=== PATIENT | female | born 1995 | race Caucasian/White ===

== ENCOUNTER 2020-06-06 16:00 | Outpatient (CLI) | payer OTHER ==
[2020-06-06 17:34] LABS: BASOPHILS % (AUTO) 0.3 %; EOSINOPHILS # (AUTO) 0.1 10^3/uL (0.0-0.7); EOSINOPHILS % (AUTO) 0.6 %; HGB - HEMOGLOBIN 10.4 g/dL (12.0-16.0); LYMPHOCYTES # (AUTO) 1.7 10^3/uL (1.5-3.5); MEAN CORPUSCULAR HEMOGLOBIN 29.2 pg (27.0-31.0); MEAN CORPUSCULAR HGB CONC 33.2 g/dL (32.0-36.0); MEAN CORPUSCULAR VOLUME 87.9 fL (81.0-99.0); MEAN PLATELET VOLUME 8.7 fL (7.9-10.8); MONOCYTES # (AUTO) 0.5 10^3/uL (0.0-1.0); MONOCYTES % (AUTO) 4.4 %; NEUTROPHILS # (AUTO) 9.2 10^3/uL (1.5-6.6); NEUTROPHILS % (AUTO) 79.1 %; PLT - PLATELET COUNT 283 10^3/uL (130-450); RED BLOOD COUNT 3.56 10^6/uL (4.20-5.40); RED CELL DISTRIBUTION WIDTH 12.5 % (12.0-15.0); WHITE BLOOD COUNT 11.6 x10^3/uL (4.8-10.8)
== END 2020-06-06 16:01 | disposition home or self-care (01) ==
LOC: LAB 16:00
PROVIDERS: ATTEND Nurse Practitioner Obstetrics & Gynecology
DX: Z34.90 Encounter for supervision of normal pregnancy, unspecified, unspecified trimester (principal)
CPT/HCPCS: 36415; 82950; 85025; 86850

== ENCOUNTER 2020-06-08 08:00 | Outpatient (CLI) | payer OTHER | END 2020-06-08 23:59 | disposition home or self-care (01) | LOC: LAB.R 08:00 | PROVIDERS: ATTEND Nurse Practitioner Obstetrics & Gynecology | DX: Z11.3 Encounter for screening for infections with a predominantly sexual mode of transmission (principal) | CPT/HCPCS: 81599; 87491; 87591 ==

== ENCOUNTER 2020-06-20 08:08 | Outpatient (CLI) | payer OTHER | END 2020-06-20 08:09 | disposition home or self-care (01) | LOC: LAB 08:08 | PROVIDERS: ATTEND Nurse Practitioner Obstetrics & Gynecology | DX: O99.810 Abnormal glucose complicating pregnancy (principal) | CPT/HCPCS: 36415; 82951; 82952 ==

== ENCOUNTER 2020-07-13 10:36 | Outpatient (CLI) | payer OTHER ==
[2020-07-13 10:53] LABS: HGB - HEMOGLOBIN 12.1 g/dL (12.0-16.0); MEAN CORPUSCULAR HEMOGLOBIN 30.1 pg (27.0-31.0); MEAN CORPUSCULAR VOLUME 88.6 fL (81.0-99.0); MEAN PLATELET VOLUME 8.7 fL (7.9-10.8); RED BLOOD COUNT 4.02 10^6/uL (4.20-5.40); WHITE BLOOD COUNT 10.7 x10^3/uL (4.8-10.8)
== END 2020-07-13 10:37 | disposition home or self-care (01) ==
LOC: LAB 10:36
PROVIDERS: ATTEND Advanced Practice Midwife
DX: Z34.90 Encounter for supervision of normal pregnancy, unspecified, unspecified trimester (principal)
CPT/HCPCS: 36415; 85027

== ENCOUNTER 2020-07-24 14:23 | Outpatient (CLI) | payer OTHER ==
--- NOTE | 2020-07-24 15:41 | Ultrasound Report ---
PROCEDURE: OB Limited INDICATIONS: GESTATIONAL DIABETES MELLITUS OUTSIDE/PRIOR DATING DATA: Last menstrual period (LMP): 10/31/2019. LMP-based estimated date of delivery ([place]): 08/06/2020. First dating scan (date and location): Not available. Estimated date of delivery ([place]) from first dating scan: Not available. TECHNIQUE: Real-time scanning was performed of the fetus, with image documentation. Endovaginal scanning: COMPARISON: None. FINDINGS: A single living intrauterine gestation is present. Presentation: Vertex Placenta: Placental position is posterior, without previa. Amniotic fluid index: 12.0 cm, 28% for gestational age. heart rate: 141 beats per minutes. Maternal cervical canal: Not visualized Estimated gestational age from initial scan: 34 weeks, 2 days. IMPRESSION: 1. Single live intrauterine gestation with an CASTRO of 12 cm which is 28th percentile for gestational a ge. No priors are available at this time for comparison. Reviewed by: Muna Prasad MD on 07/24/2020 2:40 PM [place] Approved by: Muna Prasad MD on 07/24/2020 2:40 PM [place] Station ID: [id number]
== END 2020-07-24 14:24 | disposition home or self-care (01) ==
LOC: DI 14:23
PROVIDERS: ATTEND Advanced Practice Midwife
DX: O24.419 Gestational diabetes mellitus in pregnancy, unspecified control (principal); Z3A.34 34 weeks gestation of pregnancy

== ENCOUNTER 2020-07-24 15:22 | Outpatient (CLI) | payer OTHER ==
[2020-07-24 15:52] VITALS: BP 114/76
--- NOTE | 2020-07-24 18:31 | PROCEDURE REPORT ---
- HPI Diagnosis/Indication for NST: Gestational Diabetes Current EDU 09/02/20 Gestation 34 Weeks and 2 Days 2 Para 0 Vital Signs Temperature 37.2 C 07/24/20 15:51 Heart Rate 96 07/24/20 15:51 Respiratory Rate 16 07/24/20 15:51 Blood Pressure 114/76 07/24/20 15:51 O2 Saturation 97 07/24/20 15:51 Temperature 37.2 C 07/24/20 15:51 Heart Rate 96 07/24/20 15:51 Respiratory Rate 16 07/24/20 15:51 Blood Pressure 114/76 07/24/20 15:51 O2 Saturation 97 07/24/20 15:51 - NST Procedure NST Procedure Start Date 07/24/20 Start Time 15:31 Stop Time 16:14 Vibroacoustic Stimulation Used Yes Patient States Movement Yes - Results and Plan Plan: NST perform date: 07/24/2020 NST read date: 07/24/2020 S: Yohana is a 25yo at 37.2wks gestation who presents for NST w/CASTRO for borderline poorly controlled A1GDM (20% of sugars out of range) O: NST interpretation: 145 baseline moderate variability Accels 15x15 no decels CASTRO 12 A: Reassuring CASTRO wnl Plan: continue with routine care Weekly NST w/CASTRO' Final Diagnosis: Gestational Diabetes
== END 2020-07-24 16:20 | disposition home or self-care (01) ==
LOC: WFO 15:22 → FBP 15:24 → WFO 16:20
PROVIDERS: ATTEND Advanced Practice Midwife
DX: O24.410 Gestational diabetes mellitus in pregnancy, diet controlled (principal); Z3A.34 34 weeks gestation of pregnancy
CPT/HCPCS: 59025

== ENCOUNTER 2020-07-28 14:31 | Outpatient (CLI) | payer OTHER ==
--- NOTE | 2020-07-28 18:40 | Ultrasound Report ---
PROCEDURE: OB Limited INDICATIONS: GESTATIONAL DIABETES MELLITUS OUTSIDE/PRIOR DATING DATA: Last menstrual period (LMP): 10/31/2019. LMP-based estimated date of delivery ([place]): 08/06/2020. First dating scan (date and location): Not available. Estimated date of delivery ([place]) from first dating scan: Not available. TECHNIQUE: Real-time scanning was performed of the fetus, with image documentation. Endovaginal scanning: Not performed COMPARISON: 07/24/2020. FINDINGS: A single living intrauterine gestation is present. Presentation: Vertex Placenta: Placental position is posterior, without previa. Amniotic fluid index: 15.2 cm, normal and at 57 percentile for gestational age. heart rate: 153 beats per minutes. Maternal cervical canal: 3.2 cm long; normal length is 2.5 cm or more. Estimated gestational age from initial scan: 34 weeks, 6 days. Largest amniotic fluid pocket measures 5.3 cm. chest, stomach, and bilateral kidneys are visual ized and are within normal limits. Incidentally noted of positive tone, movement and andres thing. IMPRESSION: Single live intrauterine with fetus in vertex presentation. heart rate is 153 bpm. No rmal amount of amniotic fluid. Normal growth Reviewed by: Wesley Johnson MD on 07/28/2020 6:39 PM PST Approved by: Wesley Johnson MD on 07/28/2020 6:39 PM PST Station ID: [id number]
== END 2020-07-28 14:32 | disposition home or self-care (01) ==
LOC: DI 14:31
PROVIDERS: ATTEND Advanced Practice Midwife
DX: O24.419 Gestational diabetes mellitus in pregnancy, unspecified control (principal); Z3A.34 34 weeks gestation of pregnancy

== ENCOUNTER 2020-07-28 15:15 | Outpatient (CLI) | payer OTHER ==
[2020-07-28 16:26] VITALS: BP 108/72
--- NOTE | 2020-07-28 16:31 | PROCEDURE REPORT ---
- HPI Diagnosis/Indication for NST: Gestational Diabetes - NST Procedure NST Procedure Start Time 15:31 Stop Time 16:14 - Results and Plan Plan: Yohana is a 25yo @ 34.6wks gestation who presents to [facility] for scheduled NST secondary to gestational diabetes. She denies vaginal bleeding or leakage of fluid. She denies contractions and reports +FM. NST performed 07/28/2020 NST read 07/28/2020 NST reactive. FHR baseline 135, moderate variability, + accels, no decels Pt released home with precautions. FINAL DIAGNOSIS: Gestational Diabetes
== END 2020-07-28 16:02 | disposition home or self-care (01) ==
LOC: WFO 15:15 → FBP 15:17 → WFO 16:02
PROVIDERS: ATTEND Advanced Practice Midwife
DX: O24.419 Gestational diabetes mellitus in pregnancy, unspecified control (principal); Z3A.34 34 weeks gestation of pregnancy
CPT/HCPCS: 59025; 99212

== ENCOUNTER 2020-08-05 13:34 | Outpatient (CLI) | payer OTHER ==
--- NOTE | 2020-08-06 11:23 | Ultrasound Report ---
PROCEDURE: OB Limited INDICATIONS: GESTATIONAL DIABETES MELLITUS OUTSIDE/PRIOR DATING DATA: Last menstrual period (LMP): 10/31/2019. LMP-based estimated date of delivery ([place]): 08/06/2020. First dating scan (date and location): Outside. Estimated date of delivery ([place]) from first dating scan: 09/02/2020. TECHNIQUE: Real-time scanning was performed of the fetus, with image documentation. Endovaginal scanning: Not performed COMPARISON: 07/24/2020, 07/28/2020, 04/18/2020 FINDINGS: A single living intrauterine gestation is present. Presentation: Vertex Placenta: Placental position is posterior, without previa. Amniotic fluid index: 14 cm, 51st percentile for gestational age. heart rate: 152 beats per minutes. Estimated gestational age from initial scan: 36 weeks 0 days. Normal appearance of the chest, stomach, kidneys. IMPRESSION: Single living intrauterine fetus in vertex presentation. Normal CASTRO Reviewed by: Shahbaz Ingram MD on 08/06/2020 11:21 AM PST Approved by: Shahbaz Ingram MD on 08/06/2020 11:21 AM PST Station ID: [id number]
== END 2020-08-05 13:35 | disposition home or self-care (01) ==
LOC: DI 13:34
PROVIDERS: ATTEND Advanced Practice Midwife
DX: O24.419 Gestational diabetes mellitus in pregnancy, unspecified control (principal)

== ENCOUNTER 2020-08-05 15:01 | Outpatient (CLI) | payer OTHER ==
[2020-08-05 15:20] VITALS: BP 121/73
--- NOTE | 2020-08-05 17:51 | PROCEDURE REPORT ---
- HPI Diagnosis/Indication for NST: Gestational Diabetes Current EDU 09/02/20 Gestation 36 Weeks and 0 Days 2 Para 0 Vital Signs Temperature 97 F L 08/05/20 15:15 Heart Rate 79 08/05/20 15:15 Respiratory Rate 16 08/05/20 15:15 Blood Pressure 121/73 08/05/20 15:15 O2 Saturation 100 08/05/20 15:15 Temperature 97 F L 08/05/20 15:15 Heart Rate 79 08/05/20 15:15 Respiratory Rate 16 08/05/20 15:15 Blood Pressure 121/73 08/05/20 15:15 O2 Saturation 100 08/05/20 15:15 - NST Procedure NST Procedure Start Date 08/05/20 Start Time 15:10 Stop Time 15:40 Vibroacoustic Stimulation Used No Patient States Movement Yes - Results and Plan Findings/Impression: Baseline: 135 BPM Accelerations: present Decelerations: absent Variability: moderate Changes over time: neg [place]: no contractions to irritable Impression: Category 1 NST
== END 2020-08-05 16:00 | disposition home or self-care (01) ==
LOC: WFO 15:01 → FBP 15:04 → WFO 16:00
PROVIDERS: ATTEND Obstetrics & Gynecology
DX: O24.419 Gestational diabetes mellitus in pregnancy, unspecified control (principal); Z3A.36 36 weeks gestation of pregnancy
CPT/HCPCS: 59025

== ENCOUNTER 2020-08-08 14:02 | Outpatient (CLI) | payer OTHER ==
[2020-08-08 14:14] VITALS: BP 119/78
--- NOTE | 2020-08-08 17:32 | PROCEDURE REPORT ---
- HPI Diagnosis/Indication for NST: Gestational Diabetes Current EDU 09/02/20 Gestation 36 Weeks and 3 Days 2 Para 0 Vital Signs Temperature 98.4 F 08/08/20 14:10 Heart Rate 96 08/08/20 14:10 Respiratory Rate 18 08/08/20 14:10 Blood Pressure 119/78 08/08/20 14:10 O2 Saturation 100 08/08/20 14:10 Temperature 98.4 F 08/08/20 14:10 Heart Rate 96 08/08/20 14:10 Respiratory Rate 18 08/08/20 14:10 Blood Pressure 119/78 08/08/20 14:10 O2 Saturation 100 08/08/20 14:10 - NST Procedure NST Procedure Start Date 08/08/20 Start Time 14:10 Stop Time 14:30 Vibroacoustic Stimulation Used No Patient States Movement Yes - Results and Plan Findings/Impression: Baseline: 150bpm Acceleations: present Decelerations: absent Variability: moderate Changes over time: none [place]: negative contractions Impression: category 1 NST
== END 2020-08-08 14:35 | disposition home or self-care (01) ==
LOC: WFO 14:02 → FBP 14:04 → WFO 14:35
PROVIDERS: ATTEND Obstetrics & Gynecology
DX: O24.419 Gestational diabetes mellitus in pregnancy, unspecified control (principal); Z3A.36 36 weeks gestation of pregnancy
CPT/HCPCS: 59025

== ENCOUNTER 2020-08-11 08:00 | Outpatient (CLI) | payer OTHER | END 2020-08-11 23:59 | disposition home or self-care (01) | LOC: LAB.R 08:00 | PROVIDERS: ATTEND Obstetrics & Gynecology | DX: Z36.85 Encounter for antenatal screening for Streptococcus B (principal) | CPT/HCPCS: 87797 ==

== ENCOUNTER 2020-08-11 13:06 | Outpatient (CLI) | payer OTHER ==
--- NOTE | 2020-08-12 09:21 | Ultrasound Report ---
PROCEDURE: OB F/U or Repeat INDICATIONS: GESTATIONAL DIABETES MELLITUS OUTSIDE/PRIOR DATING DATA: Last menstrual period (LMP): 10/31/2019. LMP-based estimated date of delivery ([place]): 08/06/2020. First dating scan (date and location): Performed at an outside institution. Imaging date unknown. Estimated date of delivery ([place]) from first dating scan: 09/02/2020 (per report). TECHNIQUE: Real-time scanning was performed of the fetus, with image documentation and biometric measurements. Endovaginal scanning: Not performed COMPARISON: 08/05/2020 FINDINGS: General: A single living intrauterine gestation is present. Presentation: Vertex Placenta: Placental position is posterior, without previa. Amniotic fluid index: 14.4 cm, 55th percentile for gestational age. Largest pocket measured 5.2 cm heart rate: 141 beats per minute. Maternal cervical canal: Maternal cervix not imaged secondary to advanced gestational age and positioning within the pelvis. biometrics: Biparietal diameter: 8.7 cm, correlating with 35 weeks and 2 days Head circumference: 31.8 cm, correlating with 35 weeks and 6 days Abdominal circumference: 32.02 cm, correlating with 36 weeks and 0 days Femur length: 6.96 cm correlating with 35 weeks and 5 days Estimated gestational age from initial scan: not applicable. Composite gestational age from present scan: 35 weeks and 5 days Estimated weight and percentile: 2771 g which correlates with the 28th percentile based off ges tational age Measurement variability in biometric dating: +/- 10 days from 12-20 weeks gestation, +/- 2 weeks from 20-30 weeks gestation, +/- 3 weeks at 30 weeks gestation or more. Other: Not applicable. IMPRESSION: 1. Single living intrauterine gestation with estimated sonographic gestational age of approximately 3 5 weeks and 5 days. Estimated weight of approximately 2771 g which correlates with the 28th per centile based off gestational age. Expected interval growth has occurred. 2. Four-quadrant CASTRO measuring 14.4 cm with largest vertical fluid pocket measuring 5.2 cm. Reviewed by: Niko Feliciano MD on 08/12/2020 8:20 AM [facility] Approved by: Niko Feliciano MD on 08/12/2020 8:20 AM [facility] Station ID: [id number]
== END 2020-08-11 13:07 | disposition home or self-care (01) ==
LOC: DI 13:06
PROVIDERS: ATTEND Advanced Practice Midwife
DX: O24.419 Gestational diabetes mellitus in pregnancy, unspecified control (principal)

== ENCOUNTER 2020-08-11 15:29 | Outpatient (CLI) | payer OTHER ==
[2020-08-11 15:57] VITALS: BP 118/73
--- NOTE | 2020-08-11 16:16 | PROCEDURE REPORT ---
- HPI Diagnosis/Indication for NST: Gestational Diabetes Vital Signs Temperature 97.9 F 08/11/20 15:40 Heart Rate 81 08/11/20 15:40 Respiratory Rate 18 08/11/20 15:40 Blood Pressure 118/73 08/11/20 15:40 O2 Saturation 99 08/11/20 15:40 Temperature 97.9 F 08/11/20 15:40 Heart Rate 81 08/11/20 15:40 Respiratory Rate 18 08/11/20 15:40 Blood Pressure 118/73 08/11/20 15:40 O2 Saturation 99 08/11/20 15:40 - NST Procedure NST Procedure Start Time 14:10 Stop Time 14:30 - Results and Plan Findings/Impression: Baseline: 140 BPM Variability: Moderate Accelerations: Present Decelerations: Absent Trends in FHR over time: no changes [place] contractions in 10 minutes: 0 Impression: reactive Category 1 NST
== END 2020-08-11 16:05 | disposition home or self-care (01) ==
LOC: WFO 15:29 → FBP 15:30 → WFO 16:05
PROVIDERS: ATTEND Obstetrics & Gynecology
DX: O24.419 Gestational diabetes mellitus in pregnancy, unspecified control (principal); Z36.85 Encounter for antenatal screening for Streptococcus B; Z3A.36 36 weeks gestation of pregnancy
CPT/HCPCS: 59025; 87797

== ENCOUNTER 2020-08-16 14:07 | Outpatient (CLI) | payer OTHER ==
[2020-08-16 14:46] VITALS: BP 105/57
--- NOTE | 2020-08-19 23:12 | PROCEDURE REPORT ---
- HPI Diagnosis/Indication for NST: Gestational Diabetes Current EDU 09/02/20 Gestation 37 Weeks and 4 Days 2 Para 0 Vital Signs Temperature 97.3 F L 08/16/20 14:26 Heart Rate 100 08/16/20 14:26 Respiratory Rate 16 08/16/20 14:26 Blood Pressure 121/80 08/16/20 14:26 O2 Saturation 99 08/16/20 14:26 Temperature 97.3 F L 08/16/20 14:26 Heart Rate 100 08/16/20 14:26 Respiratory Rate 16 08/16/20 14:26 Blood Pressure 105/57 L 08/16/20 14:44 O2 Saturation 99 08/16/20 14:26 - NST Procedure NST Procedure Start Date 08/16/20 Start Time 14:21 Stop Time 14:46 Vibroacoustic Stimulation Used No Patient States Movement Yes EFM 145 mod [place] 15x15 accels no decels TOCO: Quiet - Results and Plan Findings/Impression: 25 yo at 37+4 wga with A2DM here for NST Cat I tracing Cont with twice wekyl NST and weekly CASTRO IOL at 39 weeks DX:gestational diabetes
== END 2020-08-16 15:00 | disposition home or self-care (01) ==
LOC: WFO 14:07 → FBP 14:10 → WFO 15:00
PROVIDERS: ATTEND Obstetrics & Gynecology
DX: O24.410 Gestational diabetes mellitus in pregnancy, diet controlled (principal); Z3A.39 39 weeks gestation of pregnancy
CPT/HCPCS: 59025

== ENCOUNTER 2020-08-19 13:38 | Outpatient (CLI) | payer OTHER ==
--- NOTE | 2020-08-19 15:57 | Ultrasound Report ---
PROCEDURE: OB Limited INDICATIONS: GESTATIONAL DIABETES MELLITUS OUTSIDE/PRIOR DATING DATA: Last menstrual period (LMP): 10/31/2019. LMP-based estimated date of delivery ([place]): 08/06/2020. First dating scan (date and location): [place] state. Estimated date of delivery ([place]) from first dating scan: 09/02/2020. TECHNIQUE: Real-time scanning was performed of the fetus, with image documentation. COMPARISON: OB ultrasound 08/11/2020, 08/05/2020, 07/28/2020, 07/17, 04/18/2020 FINDINGS: A single living intrauterine gestation is present. Presentation: Vertex Placenta: Placental position is posterior, without previa. Amniotic fluid index: 9.3 cm, 14th percentile for gestational age. Largest pocket measures 7.1 cm. heart rate: 149 beats per minutes. Maternal cervical canal: Not well seen. Estimated gestational age from initial scan: 38 weeks 0 days. IMPRESSION: 1. Single live intrauterine with CASTRO at the 14th percentile. Reviewed by: Rosa Diego MD on 08/19/2020 3:56 PM PST Approved by: Rosa Diego MD on 08/19/2020 3:56 PM PST Station ID: [id number]
== END 2020-08-19 13:39 | disposition home or self-care (01) ==
LOC: DI 13:38
PROVIDERS: ATTEND Advanced Practice Midwife
DX: O24.419 Gestational diabetes mellitus in pregnancy, unspecified control (principal); Z3A.38 38 weeks gestation of pregnancy

== ENCOUNTER 2020-08-19 14:16 | Outpatient (CLI) | payer OTHER ==
[2020-08-19 14:34] VITALS: BP 118/77
--- NOTE | 2020-08-19 21:43 | PROCEDURE REPORT ---
- HPI Diagnosis/Indication for NST: Gestational Diabetes Current EDU 09/02/20 Gestation 38 Weeks and 0 Days 2 Para 0 Vital Signs Temperature 97.3 F L 08/19/20 14:30 Heart Rate 96 08/19/20 14:30 Respiratory Rate 16 08/19/20 14:30 Blood Pressure 118/77 08/19/20 14:30 O2 Saturation 99 08/19/20 14:30 Temperature 97.3 F L 08/19/20 14:30 Heart Rate 96 08/19/20 14:30 Respiratory Rate 16 08/19/20 14:30 Blood Pressure 118/77 08/19/20 14:30 O2 Saturation 99 08/19/20 14:30 - NST Procedure NST Procedure Start Date 08/19/20 Start Time 14:28 Stop Time 14:54 Vibroacoustic Stimulation Used No Patient States Movement Yes EFM 140 mod [place] 15x15 accels no decel TOCO: quiet - Results and Plan Findings/Impression: 25 yo at 38+ 0 wga with affected by A2DM here for NST Cat I tracing Cont with twice weekly NST and weekly CASTRO IOL at 39 wga DX: gestational diabetes
== END 2020-08-19 15:00 | disposition home or self-care (01) ==
LOC: WFO 14:16 → FBP 14:19 → WFO 15:00
PROVIDERS: ATTEND Obstetrics & Gynecology
DX: O24.410 Gestational diabetes mellitus in pregnancy, diet controlled (principal); Z3A.38 38 weeks gestation of pregnancy
CPT/HCPCS: 59025

== ENCOUNTER 2020-08-22 14:01 | Outpatient (CLI) | payer OTHER ==
[2020-08-22 14:24] VITALS: BP 114/79
[2020-08-22 15:20] LABS: RUPTURE OF MEMBRANES PLUS NEGATIVE (NEGATIVE)
--- NOTE | 2020-08-26 08:41 | PROCEDURE REPORT ---
- HPI Current EDU 09/02/20 Gestation 38 Weeks and 3 Days 2 Para 0 Vital Signs Temperature 36.3 C L 08/22/20 14:21 Heart Rate 83 08/22/20 14:21 Respiratory Rate 16 08/22/20 14:21 Blood Pressure 114/79 08/22/20 14:21 O2 Saturation 100 08/22/20 14:21 Temperature 36.3 C L 08/22/20 14:21 Heart Rate 83 08/22/20 14:21 Respiratory Rate 16 08/22/20 14:21 Blood Pressure 114/79 08/22/20 14:21 O2 Saturation 100 08/22/20 14:21 - NST Procedure NST Procedure Start Date 08/22/20 Start Time 14:20 Stop Time 14:42 Vibroacoustic Stimulation Used No Patient States Movement Yes - Results and Plan Findings/Impression: 08/22/20 REACTIVE NST Plan: CONTINUE ANTINATAL TESTING
== END 2020-08-22 15:41 | disposition home or self-care (01) ==
LOC: WFO 14:01 → FBP 14:05 → WFO 15:41
PROVIDERS: ATTEND Obstetrics & Gynecology
DX: O24.419 Gestational diabetes mellitus in pregnancy, unspecified control (principal); Z3A.38 38 weeks gestation of pregnancy
CPT/HCPCS: 59025; 84112

== ENCOUNTER 2020-08-25 13:39 | Outpatient (CLI) | payer OTHER ==
--- NOTE | 2020-08-26 10:04 | Ultrasound Report ---
PROCEDURE: OB Limited INDICATIONS: GESTATIONAL DIABETES MELLITUS OUTSIDE/PRIOR DATING DATA: Last menstrual period (LMP): 10/31/2019. LMP-based estimated date of delivery ([place]): 08/06/2020. First dating scan (date and location): [id number] priors not available for review. Estimated date of delivery ([place]) from first dating scan: 09/02/2019 is established due date by ordering provider based on medical records.. TECHNIQUE: Real-time scanning was performed of the fetus, with image documentation. COMPARISON: OB ultrasound 08/11/2020, 08/05/2020, 07/28/2020, 07/24/2020, 08/19/2020, 04/18/2020 FINDINGS: A single living intrauterine gestation is present. Presentation: Vertex Placenta: Placental position is posterior, without previa. Amniotic fluid index: 11.1 cm, 31st percentile for gestational age. Largest pocket 3.8 cm. heart rate: 157 beats per minutes. Maternal cervical canal: Not evaluated Estimated gestational age from initial scan: 30 weeks 6 days. IMPRESSION: Single live intrauterine with ultrasound gestational age of 38 weeks 6 days. A FI is within normal limits. Reviewed by: Rosa Diego MD on 08/26/2020 10:03 AM PST Approved by: Rosa Diego MD on 08/26/2020 10:03 AM PST Station ID: [id number]
== END 2020-08-25 13:40 | disposition home or self-care (01) ==
LOC: DI 13:39
PROVIDERS: ATTEND Advanced Practice Midwife
DX: O24.419 Gestational diabetes mellitus in pregnancy, unspecified control (principal); Z3A.38 38 weeks gestation of pregnancy

== ENCOUNTER 2020-08-25 14:11 | Outpatient (CLI) | payer OTHER ==
[2020-08-25 14:25] VITALS: BP 126/76
--- NOTE | 2020-09-04 22:18 | PROCEDURE REPORT ---
- HPI Diagnosis/Indication for NST: Gestational Diabetes Current EDU 09/02/20 Gestation 38 Weeks and 6 Days 2 Para 1 Vital Signs Temperature 97.9 F 08/25/20 14:23 Heart Rate 92 08/25/20 14:23 Respiratory Rate 17 08/25/20 14:23 Blood Pressure 126/76 08/25/20 14:23 O2 Saturation 100 08/25/20 14:23 Temperature 97.9 F 08/25/20 14:23 Heart Rate 92 08/25/20 14:23 Respiratory Rate 17 08/25/20 14:23 Blood Pressure 126/76 08/25/20 14:23 O2 Saturation 100 08/25/20 14:23 - NST Procedure NST Procedure Start Date 08/25/20 Start Time 14:20 Stop Time 14:45 Vibroacoustic Stimulation Used No Patient States Movement Yes EFM 140 mod [place] 15x15 accels no decels TOCO: intermittent, mild - Results and Plan Findings/Impression: 25 yo at 38+6 wga with affected by A2DM here for NST Plan: Cat I tracing Plan for IOL at 39 wga Final DX: Gestational diabetes- A2 IUP at 38+6 wga
== END 2020-08-25 14:45 | disposition home or self-care (01) ==
LOC: WFO 14:11 → FBP 14:13 → WFO 14:45
PROVIDERS: ATTEND Obstetrics & Gynecology
DX: O24.410 Gestational diabetes mellitus in pregnancy, diet controlled (principal); Z3A.38 38 weeks gestation of pregnancy
CPT/HCPCS: 59025

== ENCOUNTER 2020-08-26 07:47 | Inpatient (IN) | payer OTHER ==
[2020-08-26] MEDS ORDERED: SODIUM CHLORIDE FLUSH 0.9% 10 ML SYRINGE IVP PRN (08:47)
[2020-08-26] MEDS ORDERED: LIDOCAINE-MPF 1% 30 ML VIAL ID PRN (08:47)
[2020-08-26] MEDS ORDERED: ONDANSETRON 4 MG/2 ML VIAL IVP PRN ×2 (08:47→19:54)
[2020-08-26] MEDS ORDERED: OXYTOCIN/SODIUM CHLORIDE 500 ML IV PRN (08:47)
[2020-08-26] MEDS ORDERED: METHYLERGONOVINE 0.2 MG/ML VIAL IM PRN (08:47)
[2020-08-26] MEDS ORDERED: TRANEXAMIC ACID IN NACL 1,000 MG/100 ML BAG IV PRN (08:47)
[2020-08-26] MEDS ORDERED: miSOPROStoL 200 MCG TABLET BC PRN (08:47)
[2020-08-26] MEDS ORDERED: CARBOPROST TROMETHAMINE 250 MCG/ML AMP IM PRN (08:47)
[2020-08-26] MEDS ORDERED: OXYTOCIN 10 UNIT/ML VIAL IM PRN (08:47)
[2020-08-26 09:27] LABS: BASOPHILS % (AUTO) 0.1 %; EOSINOPHILS # (AUTO) 0.1 10^3/uL (0.0-0.7); EOSINOPHILS % (AUTO) 0.6 %; HGB - HEMOGLOBIN 12.2 g/dL (12.0-16.0); LYMPHOCYTES # (AUTO) 1.9 10^3/uL (1.5-3.5); LYMPHOCYTES % (AUTO) 16.9 %; MEAN CORPUSCULAR HEMOGLOBIN 30.2 pg (27.0-31.0); MEAN CORPUSCULAR HGB CONC 34.7 g/dL (32.0-36.0); MEAN CORPUSCULAR VOLUME 87.1 fL (81.0-99.0); MEAN PLATELET VOLUME 9.6 fL (7.9-10.8); MONOCYTES # (AUTO) 0.7 10^3/uL (0.0-1.0); MONOCYTES % (AUTO) 5.9 %; NEUTROPHILS # (AUTO) 8.5 10^3/uL (1.5-6.6); NEUTROPHILS % (AUTO) 76.1 %; PLT - PLATELET COUNT 315 10^3/uL (130-450); RED BLOOD COUNT 4.04 10^6/uL (4.20-5.40); RED CELL DISTRIBUTION WIDTH 12.7 % (12.0-15.0); WHITE BLOOD COUNT 11.2 x10^3/uL (4.8-10.8)
[2020-08-26] MEDS ORDERED: miSOPROStoL 100 MCG TABLET BC SCH ×2 (10:00→14:00)
--- NOTE | 2020-08-26 12:39 | PROVIDER PROGRESS NOTE ---
Labor Progress Note - Uterine Monitoring Uterine Monitoring Mode: positive: External toco Contraction Intensity: positive: Mild - Monitoring Monitor Mode: positive: External ultrasound Heart Rate Baseline: 140 Heart Rate Variability: positive: Moderate (6-25 bmp) Accelerations: positive: Present, 15x15 Decelerations: positive: Variable Strip Review: positive: Category I - Labor Progress Note Labor Progress Note/Additional Text: PT HAS YET TO RECEIVE HER SECOND DOSE. WILL DO 2 HOUR PP GLUCOSE
[2020-08-26] MEDS: LACTATED RINGERS 1,000 ML IV SCH ×2 (12:50→21:22)
--- NOTE | 2020-08-26 15:02 | PROVIDER PROGRESS NOTE ---
Labor Progress Note - Uterine Monitoring Uterine Monitoring Mode: positive: External toco Contraction Frequency (min/apart): 3 Contraction Intensity: positive: Mild to moderate Uterine Resting Tone: positive: Soft - Monitoring Monitor Mode: positive: External ultrasound Heart Rate Baseline: 140 Heart Rate Variability: positive: Moderate (6-25 bmp) Accelerations: positive: Present, 15x15 Decelerations: positive: None - Vaginal Exam Dilation (in cm): 2 Effacement (%): 80 Station: -2 Cervical Position: Posterior - Labor Progress Note Labor Progress Note/Additional Text: cervix is progressing continue miso
--- NOTE | 2020-08-26 17:02 | HISTORY & PHYSICAL EXAMINATION ---
DATE OF SERVICE: 08/26/2020 Physician: Edwin Casarez MD IDENTIFICATION: The patient is a 25-year-old G2, P0, ectopic 1, female whose EDC was 09/02/2020. CHIEF COMPLAINT: Gestational diabetes. She is 39 weeks. She presents for induction. HISTORY OF PRESENT ILLNESS: The patient initiated early OB care. She was initially taken care of by the [facility]. She was seen by [facility] and transferred to us at 27 weeks. She had a 50 gram Glucola, which was drawn, which was 164. A 3- hour GTT showed a fasting of 101, 1-hour 183, 2-hour 155, 3-hour 107. She was treated with diet as well as metformin and showed evidence of good control throughout her . She presented this morning for cervical ripening and induction of labor. Yesterday, the patient relates that her cervix was noted to be 1 cm, 70% effaced, -3. My examination this morning shows her to be 2 cm, 80%, -2-3. LABORATORY DATA: The patient's blood type is A positive, she is rubella immune, RPR, hepatitis B surface antigen, HIV, GC and chlamydia were all noted to be negative. Her GBS study was also noted to be negative. PAST MEDICAL HISTORY: Positive for an abnormal Pap smear as well as an ectopic . PAST SURGICAL HISTORY: Positive for a right salpingectomy in 2018. FAMILY HISTORY: Positive for type 2 diabetes in paternal grandfather. SOCIAL HISTORY: The patient is to an active day duty member. She denies the use of alcohol, tobacco or street or addictive drugs. She denies any history of domestic violence: The patient denies use of tobacco. PHYSICAL EXAMINATION GENERAL: Well-developed, well-nourished, white female, in no acute distress at this time. HEENT: Pupils equal, round. Extraocular muscles are intact. Thyroid is not palpably enlarged. HEART: Regular rate and rhythm without murmurs. LUNGS: Lung carver are clear without rales or wheezes. BACK: No spinal or CVA tenderness noted. ABDOMEN: Soft, nontender, gravid. The cervix was checked and noted to be 2 cm, 80% effaced, -2-3 vertex. The cervix is very posterior. IMPRESSION: 1. A 25-year-old G2, P0 female, 39 weeks estimated gestation age today. 2. Gestational diabetes, well controlled with metformin. PLAN: We will start misoprostol 25 mcg orally at this time. We will anticipate labor and vaginal delivery. TD: 08/26/2020 16:36 MTDD
[2020-08-26] MEDS ORDERED: FLUTICASONE NASAL SPRAY NAS SCH (18:00)
[2020-08-26] MEDS ORDERED: fentaNYL 100 MCG/2 ML VIAL IVP PRN (19:12)
[2020-08-26] MEDS ORDERED: ROPIVACAINE 0.2% 200 MG/100 ML BAG EP ONE (19:26)
--- NOTE | 2020-08-26 19:52 | PROVIDER PROGRESS NOTE ---
Labor Progress Note - Uterine Monitoring Uterine Monitoring Mode: positive: External toco Contraction Frequency (min/apart): 2-3 Contraction Intensity: positive: Strong Uterine Resting Tone: positive: Soft - Monitoring Monitor Mode: positive: External ultrasound Heart Rate Baseline: 160 Heart Rate Variability: positive: Moderate (6-25 bmp) Accelerations: positive: Present, 15x15 Decelerations: positive: None Strip Review: positive: Category I - Vaginal Exam Dilation (in cm): 4 Effacement (%): 100 Station: -1 Cervical Position: Midposition - Labor Progress Note Labor Progress Note/Additional Text: temp 99.2 increased base line watch for chorio.
[2020-08-26] MEDS ORDERED: NALOXONE 0.4 MG/ML VIAL IVP PRN (19:54)
[2020-08-26] MEDS ORDERED: NALBUPHINE 10 MG/ML AMP IVP PRN (19:54)
[2020-08-26] MEDS ORDERED: METOCLOPRAMIDE 10 MG/2 ML VIAL IVP PRN (19:54)
[2020-08-26] MEDS ORDERED: ePHEDrine 50 MG/ML VIAL IVP PRN (19:54)
[2020-08-26] MEDS ORDERED: ROPIVACAINE 0.2% 200 MG/100 ML BAG EP PRN (19:54)
[2020-08-26] MEDS ORDERED: diphenhydrAMINE INJ 50 MG/ML VIAL IVP PRN (19:54)
--- NOTE | 2020-08-26 19:59 | ANESTHESIA ---
Pre-Anesthesia VS, & Labs - Diagnosis term labor, IUP - Procedure labor epidural Vital Signs: Temp Pulse Resp BP Pulse Ox 36.5 C 08/26/20 08:59 Height: 5 ft 7 in Weight (kg): 95.254 kg Body Mass Index: 32.8 BMI Classification: Obese - NPO Last Fluid Intake: t/o day Last Food Intake: full lunch - Is Patient ?: Yes - Lab Results Current Lab Results: Laboratory Tests 08/26/20 14:09: POC Whole Bld Glucose 100 08/26/20 09:35: Blood Type A NEGATIVE, Antibody Screen NEGATIVE 08/26/20 08:20: Blood Type Recheck A NEGATIVE 08/26/20 08:20: WBC 11.2 H, RBC 4.04 L, Hgb 12.2, Hct 35.2 L, MCV 87.1, MCH 30.2, MCHC 34.7, RDW 12.7, Plt Count 315, MPV 9.6, Neut # (Auto) 8.5 H, Lymph # (Auto) 1.9, [place] # (Auto) 0.7, Eos # (Auto) 0.1, Baso # (Auto) 0.0, Absolute Nucleated RBC 0.00, Nucleated RBC % 0.0 Lab results reviewed: Yes Fish Bones: 08/26/20 08:20 Home Medications and Allergies Active Medications Carboprost Tromethamine (Carboprost Tromethamine 250 Mcg/Ml Amp) 250 mcg IM Q15M PRN PRN Reason: Step 4: Hemorrhage protocol Stop: 08/31/20 08:48 Fentanyl (Fentanyl 100 Mcg/2 Ml Vial) 50 mcg IVP Q2HR PRN PRN Reason: PAIN Fluticasone Propionate (Fluticasone Nasal [place]) 1 sprays CHANCE DAILY VENEA Last Admin: 08/26/20 18:27 Dose: 1 spr Documented by: Oxytocin/Sodium Chloride (Pitocin/Sodium Chloride) 500 mls @ 999 mls/hr IV PRN PRN; Protocol PRN Reason: POST- HEMORR PREVENTION Stop: 08/31/20 08:48 Tranexamic Acid (Tranexamic 1,000 Mg/100ml-Nacl) 1,000 mg in 100 mls @ 600 mls/hr IV .ONCE PRN PRN Reason: EBL >1200mL and within 3hr Stop: 08/31/20 08:48 Lactated Ringer's (Lr) 1,000 mls @ 100 mls/hr IV .Q10H [facility] Last Admin: 08/26/20 12:50 Dose: Not Given Documented by: Lidocaine HCl (Lidocaine-Mpf 1% 30 Ml Vial) 30 ml ID .ONCE PRN PRN Reason: PERINEAL REPAIR Stop: 08/31/20 08:48 Methylergonovine Maleate (Methylergonovine 0.2 Mg/Ml Vial) 0.2 mg IM .ONCE PRN PRN Reason: Step 2: Hemorrhage protocol Stop: 08/31/20 08:48 Misoprostol (Misoprostol 200 Mcg Tablet) 800 mcg BC .ONCE PRN PRN Reason: Step 3: Hemorrhage protocol Stop: 08/31/20 08:48 Misoprostol (Misoprostol 100 Mcg Tablet) 50 mcg BC Q4H [facility] Last Admin: 08/26/20 14:00 Dose: 50 mcg Documented by: Ondansetron HCl (Ondansetron 4 Mg/2 Ml Vial) 4 mg IVP Q4HR PRN PRN Reason: Nausea / Vomiting Oxytocin (Oxytocin 10 Unit/Ml Vial) 10 unit IM .ONCE PRN PRN Reason: Step one: If no IV access Stop: 08/31/20 08:48 Sodium Chloride (Sodium Chloride Flush 0.9% 10 Ml Syringe) 10 ml IVP PRN PRN PRN Reason: NEEDED PER PROVIDER ORDERS Ferrous Sulfate 325 mg PO DAILY 07/13/20 Pnv No.95/Ferrous Fum/Folic AC [ Caplet] 1 each PO DAILY 07/13/20 Allergies/Adverse Reactions: Allergies Allergy/AdvReac Type Severity Reaction Status Date / Time No Known Drug Allergies Allergy Verified 08/26/20 09:41 Anes History & Medical History - Anesthetic History Anesthesia Complications: reports: No previous complications Family history of Anesthesia Complications: Denies Family history of Malignant Hyperthermia: Denies - Medical History Cardiovascular: reports: None Pulmonary: reports: None Gastrointestinal: reports: None Urinary: reports: None Neuro: reports: None Endocrine/Autoimmune: reports: Other (gestational diabetes) Smoking Status: Never smoker History of Cancer?: No - Surgical History Gynecologic: Other (ectopic) Exam General: Alert, Oriented x3, Cooperative Dental: WNL Mouth Opening: Greater than 4 Fingerbreadths Neck Mobility: Normal Mallampati classification: II Thyromental Distance: 4-6 cm Respiratory: No respiratory distress Cardiovascular: Regular rate Neurological: Normal speech Mental/Cognitive Status: Alert/Oriented X3, Normal for patient Cognitive Status: Within normal limits Plan Anesthesia Type: Epidural Consent for Procedure(s) Verified and Reviewed: Yes Code Status: Attempt Resuscitation ASA classification: 2-Mild systemic disease Is this case an emergency?: No
[2020-08-26] MEDS ORDERED: ePHEDrine 50 MG/ML VIAL IVP ONE (20:26)
[2020-08-26] MEDS ORDERED: SODIUM CHLORIDE 0.9% 10 ML ONE (20:26)
[2020-08-26 20:43] LABS: BASOPHILS % (AUTO) 0.1 %; EOSINOPHILS % (AUTO) 0.1 %; HGB - HEMOGLOBIN 11.2 g/dL (12.0-16.0); LYMPHOCYTES # (AUTO) 1.2 10^3/uL (1.5-3.5); LYMPHOCYTES % (AUTO) 8.7 %; MEAN CORPUSCULAR HEMOGLOBIN 29.5 pg (27.0-31.0); MEAN CORPUSCULAR HGB CONC 33.5 g/dL (32.0-36.0); MEAN CORPUSCULAR VOLUME 87.9 fL (81.0-99.0); MEAN PLATELET VOLUME 9.2 fL (7.9-10.8); MONOCYTES # (AUTO) 0.6 10^3/uL (0.0-1.0); MONOCYTES % (AUTO) 4.1 %; NEUTROPHILS # (AUTO) 11.9 10^3/uL (1.5-6.6); NEUTROPHILS % (AUTO) 86.7 %; PLT - PLATELET COUNT 272 10^3/uL (130-450); RED CELL DISTRIBUTION WIDTH 12.8 % (12.0-15.0); WHITE BLOOD COUNT 13.8 x10^3/uL (4.8-10.8)
[2020-08-26 20:51] LABS: ALBUMIN 3.1 g/dL (3.2-5.5); BILIRUBIN,TOTAL 0.3 mg/dL (0.2-1.0); CALCIUM 8.9 mg/dL (8.5-10.3); CREATININE 0.7 mg/dL (0.4-1.0); TOTAL PROTEIN 6.1 g/dL (6.7-8.2)
[2020-08-26] MEDS ORDERED: OXYTOCIN/SODIUM CHLORIDE 500 ML IV SCH (21:00)
--- NOTE | 2020-08-26 22:59 | PROVIDER PROGRESS NOTE ---
Labor Progress Note - Uterine Monitoring Uterine Monitoring Mode: positive: External toco Contraction Frequency (min/apart): 2-3 Contraction Intensity: positive: Moderate to strong Uterine Resting Tone: positive: Soft - Monitoring Monitor Mode: positive: External ultrasound Heart Rate Baseline: 155 Heart Rate Variability: positive: Moderate (6-25 bmp) Accelerations: positive: Present, 15x15 Decelerations: positive: None Strip Review: positive: Category I - Vaginal Exam Dilation (in cm): C Effacement (%): C Station: 0 Cervical Position: Anterior - Labor Progress Note Labor Progress Note/Additional Text: LABOR DOWN THAN START PUSHING
[2020-08-27] MEDS ORDERED: oxyCODONE 5 MG TABLET PO PRN (01:21)
[2020-08-27] MEDS ORDERED: WITCH HAZEL/GLYCERIN 1 PAD TOP PRN (01:21)
[2020-08-27] MEDS ORDERED: HYDROCORTISONE 1% CREAM 28 GM TUBE PR PRN (01:21)
--- NOTE | 2020-08-27 01:29 | DELIVERY NOTE ---
Delivery Note - Labor Labor: positive: Spontaneous, Augmented by oxytocin, Induced by oxytocin - Delivery Method Infant Delivery Method: positive: Spontaneous vaginal delivery - Cervical Ripening Method Cervical Ripening Method: positive: Misoprostil - Presentation Presentation: positive: Vertex, CLARICE - left occiput anterior - Nuchal Cord Nuchal Cord: positive: None (ONE) - Anesthetic Anesthetic Type: - Amniotic Fluid Description Amniotic Fluid Description: positive: Light meconium - Episiotomy Type Episiotomy Type: positive: None - Laceration Laceration: positive: 2nd degree, Perineal - Suture Suture Type: positive: Vicryl Suture Size: positive: 3-0 - [place]: positive: Placed in direct skin contact with mother, Bulb syringe, Stimulated, [place] used [place] sex: positive: Female - Cord Cord: positive: 3 vessels - Placenta Placenta: positive: Intact - Estimated Blood Loss Estimated Blood Loss (in cc): 400 - Post Delivery Events Post Delivery Events: positive: No post delivery events
[2020-08-27] MEDS ORDERED: LACTATED RINGERS 1,000 ML IV SCH (02:00)
[2020-08-27] MEDS: ACETAMINOPHEN 500 MG TABLET PO SCH ×3 (02:12→21:03)
[2020-08-27] MEDS ORDERED: KETOROLAC 30 MG/ML VIAL IVP ONE (02:15)
--- NOTE | 2020-08-27 04:27 | PROCEDURE REPORT ---
DATE OF SERVICE: 08/27/2020 Physician: Edwin Casarez MD The patient presented the morning of the for induction of labor secondary to her gestational grabiel betes. It had been well controlled through her . At the time of admission, her cervix was 2 cm, 80% and -2. She received misoprostol orally, which caused contractions and cramping. She spon taneously ruptured at 1550 and meconium stained fluid was encountered at that time. Her labor became progressively more painful and she received an epidural for labor analgesia. She had tachycar grabiel, but there was no maternal temperature and the white count was noted to be 13.8. The tachy cardia regressed down to 155. She reached complete at 2255. She was allowed to labor down for roug hly half an hour. She started pushing and pushed quite well. At 0030. She had delivery of a live f emale with Apgars 8 and 9. There was a nuchal cord noted at time of delivery, which was reduc ed prior to delivery of the shoulders. At time of delivery, she suffered a second-degree perineal la ceration with a right labial laceration roughly a first-degree. These were all closed with 3-0 Vicry l. Placenta was delivered at 0056, was inspected and noted to be intact. She had cultures from both sides of placenta taken. Mother tolerated delivery well. TD: 08/27/2020 01:32
[2020-08-27 05:26] LABS: BASOPHILS # (AUTO) 0.1 10^3/uL (0.0-0.1); BASOPHILS % (AUTO) 0.3 %; EOSINOPHILS % (AUTO) 0.2 %; HGB - HEMOGLOBIN 10.5 g/dL (12.0-16.0); LYMPHOCYTES # (AUTO) 1.9 10^3/uL (1.5-3.5); LYMPHOCYTES % (AUTO) 10.2 %; MEAN CORPUSCULAR HEMOGLOBIN 29.6 pg (27.0-31.0); MEAN PLATELET VOLUME 9.3 fL (7.9-10.8); MONOCYTES % (AUTO) 5.5 %; NEUTROPHILS # (AUTO) 15.2 10^3/uL (1.5-6.6); NEUTROPHILS % (AUTO) 83.2 %; PLT - PLATELET COUNT 259 10^3/uL (130-450); RED BLOOD COUNT 3.55 10^6/uL (4.20-5.40); RED CELL DISTRIBUTION WIDTH 12.7 % (12.0-15.0); WHITE BLOOD COUNT 18.3 x10^3/uL (4.8-10.8)
[2020-08-27] MEDS ORDERED: SIMETHICONE CHEW 80 MG TABLET PO SCH (06:00)
[2020-08-27] MEDS: DOCUSATE SODIUM 100 MG CAPSULE PO SCH (09:11)
[2020-08-27] MEDS: IBUPROFEN 800 MG TABLET PO SCH ×5 (09:11→23:08)
--- NOTE | 2020-08-27 10:22 | PROVIDER PROGRESS NOTE ---
Subjective - Prog Note Date Prog Note Date: 08/27/20 Prog Note Time: 10:13 - Subjective Pt reports feeling: Improved (PAIN 0/10, Breast feeding.) Objective - Vital Signs/Intake & Output Reviewed Vital Signs: Yes Vital Signs: Vital Signs x48h Temp Pulse Resp BP Pulse Ox 08/27/20 09:00 36.6 C 81 16 125/75 99 08/27/20 04:00 37.2 C 106 H 18 101/77 98 08/27/20 03:00 37.3 C 89 18 111/58 L 98 Intake & Output: Intake & Output 08/24/20 08/25/20 08/26/20 08/27/20 23:59 23:59 23:59 23:59 Intake Total 500 400 Output Total 1300 800 Balance -800 -400 - Objective General Appearance: positive: No acute distress, Alert Abdomen: positive: Non-tender, No organomegaly, Mass (u-2 mild tenderness) Extremities: negative: Calf tenderness, Jane's sign/cords - Lab Results Fish Bones: 08/27/20 05:11 08/26/20 20:34 Other Labs: Lab Results x24hrs 08/27/20 08/27/20 08/27/20 Range/Units 10:06 06:20 05:11 WBC 18.3 H (4.8-10.8) x10^3/uL RBC 3.55 L (4.20-5.40) 10^6/uL Hgb 10.5 L (12.0-16.0) g/dL Hct 30.9 L (37.0-47.0) % MCV 87.0 (81.0-99.0) fL MCH 29.6 (27.0-31.0) pg MCHC 34.0 (32.0-36.0) g/dL RDW 12.7 (12.0-15.0) % Plt Count 259 (130-450) 10^3/uL MPV 9.3 (7.9-10.8) fL Neut # (Auto) 15.2 H (1.5-6.6) 10^3/uL Lymph # (Auto) 1.9 (1.5-3.5) 10^3/uL [place] # (Auto) 1.0 (0.0-1.0) 10^3/uL Eos # (Auto) 0.0 (0.0-0.7) 10^3/uL Baso # (Auto) 0.1 (0.0-0.1) 10^3/uL Absolute Nucleated RBC 0.00 x10^3/uL Nucleated RBC % 0.0 /100WBC Sodium (135-145) mmol/L Potassium (3.5-5.0) mmol/L Chloride (101-111) mmol/L Carbon Dioxide (21-32) mmol/L Anion Gap (6-13) BUN (6-20) mg/dL Creatinine (0.4-1.0) mg/dL Estimated GFR (MDRD) (>89) Glucose (70-100) mg/dL POC Whole Bld Glucose 105 H (70 - 100) mg/dL Calcium (8.5-10.3) mg/dL Total Bilirubin (0.2-1.0) mg/dL AST (10-42) IU/L ALT (10-60) IU/L Alkaline Phosphatase (42-121) IU/L Total Protein (6.7-8.2) g/dL Albumin (3.2-5.5) g/dL Globulin (2.1-4.2) g/dL Albumin/Globulin Ratio (1.0-2.2) Coronavirus (PCR) Blood Type A NEGATIVE Blood Type Recheck Antibody Screen Maternal Bleed NEGATIVE (NEGATIVE) 08/26/20 08/26/20 08/26/20 Range/Units 20:34 20:34 20:05 WBC 13.8 H (4.8-10.8) x10^3/uL RBC 3.80 L (4.20-5.40) 10^6/uL Hgb 11.2 L (12.0-16.0) g/dL Hct 33.4 L (37.0-47.0) % MCV 87.9 (81.0-99.0) fL MCH 29.5 (27.0-31.0) pg MCHC 33.5 (32.0-36.0) g/dL RDW 12.8 (12.0-15.0) % Plt Count 272 (130-450) 10^3/uL MPV 9.2 (7.9-10.8) fL Neut # (Auto) 11.9 H (1.5-6.6) 10^3/uL Lymph # (Auto) 1.2 L (1.5-3.5) 10^3/uL [place] # (Auto) 0.6 (0.0-1.0) 10^3/uL Eos # (Auto) 0.0 (0.0-0.7) 10^3/uL Baso # (Auto) 0.0 (0.0-0.1) 10^3/uL Absolute Nucleated RBC 0.00 x10^3/uL Nucleated RBC % 0.0 /100WBC Sodium 134 L (135-145) mmol/L Potassium 3.3 L (3.5-5.0) mmol/L Chloride 103 (101-111) mmol/L Carbon Dioxide 21 (21-32) mmol/L Anion Gap 10.0 (6-13) BUN 11 (6-20) mg/dL Creatinine 0.7 (0.4-1.0) mg/dL Estimated GFR (MDRD) 100 (>89) Glucose 134 H (70-100) mg/dL POC Whole Bld Glucose 125 H (70 - 100) mg/dL Calcium 8.9 (8.5-10.3) mg/dL Total Bilirubin 0.3 (0.2-1.0) mg/dL AST 17 (10-42) IU/L ALT 17 (10-60) IU/L Alkaline Phosphatase 114 (42-121) IU/L Total Protein 6.1 L (6.7-8.2) g/dL Albumin 3.1 L (3.2-5.5) g/dL Globulin 3.0 (2.1-4.2) g/dL Albumin/Globulin Ratio 1.0 (1.0-2.2) Coronavirus (PCR) Blood Type Blood Type Recheck Antibody Screen Maternal Bleed (NEGATIVE) 08/26/20 08/26/20 08/26/20 Range/Units 14:09 09:35 09:30 WBC (4.8-10.8) x10^3/uL RBC (4.20-5.40) 10^6/uL Hgb (12.0-16.0) g/dL Hct (37.0-47.0) % MCV (81.0-99.0) fL MCH (27.0-31.0) pg MCHC (32.0-36.0) g/dL RDW (12.0-15.0) % Plt Count (130-450) 10^3/uL MPV (7.9-10.8) fL Neut # (Auto) (1.5-6.6) 10^3/uL Lymph # (Auto) (1.5-3.5) 10^3/uL [place] # (Auto) (0.0-1.0) 10^3/uL Eos # (Auto) (0.0-0.7) 10^3/uL Baso # (Auto) (0.0-0.1) 10^3/uL Absolute Nucleated RBC x10^3/uL Nucleated RBC % /100WBC Sodium (135-145) mmol/L Potassium (3.5-5.0) mmol/L Chloride (101-111) mmol/L Carbon Dioxide (21-32) mmol/L Anion Gap (6-13) BUN (6-20) mg/dL Creatinine (0.4-1.0) mg/dL Estimated GFR (MDRD) (>89) Glucose (70-100) mg/dL POC Whole Bld Glucose 100 (70 - 100) mg/dL Calcium (8.5-10.3) mg/dL Total Bilirubin (0.2-1.0) mg/dL AST (10-42) IU/L ALT (10-60) IU/L Alkaline Phosphatase (42-121) IU/L Total Protein (6.7-8.2) g/dL Albumin (3.2-5.5) g/dL Globulin (2.1-4.2) g/dL Albumin/Globulin Ratio (1.0-2.2) Coronavirus (PCR) NEGATIVE Blood Type A NEGATIVE Blood Type Recheck Antibody Screen NEGATIVE Maternal Bleed (NEGATIVE) 08/26/20 Range/Units 08:20 WBC (4.8-10.8) x10^3/uL RBC (4.20-5.40) 10^6/uL Hgb (12.0-16.0) g/dL Hct (37.0-47.0) % MCV (81.0-99.0) fL MCH (27.0-31.0) pg MCHC (32.0-36.0) g/dL RDW (12.0-15.0) % Plt Count (130-450) 10^3/uL MPV (7.9-10.8) fL Neut # (Auto) (1.5-6.6) 10^3/uL Lymph # (Auto) (1.5-3.5) 10^3/uL [place] # (Auto) (0.0-1.0) 10^3/uL Eos # (Auto) (0.0-0.7) 10^3/uL Baso # (Auto) (0.0-0.1) 10^3/uL Absolute Nucleated RBC x10^3/uL Nucleated RBC % /100WBC Sodium (135-145) mmol/L Potassium (3.5-5.0) mmol/L Chloride (101-111) mmol/L Carbon Dioxide (21-32) mmol/L Anion Gap (6-13) BUN (6-20) mg/dL Creatinine (0.4-1.0) mg/dL Estimated GFR (MDRD) (>89) Glucose (70-100) mg/dL POC Whole Bld Glucose (70 - 100) mg/dL Calcium (8.5-10.3) mg/dL Total Bilirubin (0.2-1.0) mg/dL AST (10-42) IU/L ALT (10-60) IU/L Alkaline Phosphatase (42-121) IU/L Total Protein (6.7-8.2) g/dL Albumin (3.2-5.5) g/dL Globulin (2.1-4.2) g/dL Albumin/Globulin Ratio (1.0-2.2) Coronavirus (PCR) Blood Type Blood Type Recheck A NEGATIVE Antibody Screen Maternal Bleed (NEGATIVE) Assessment/Plan - Problem List (1) (spontaneous vaginal delivery) Impression: elevated WBC watch for temps
[2020-08-28 05:05] LABS: BASOPHILS % (AUTO) 0.3 %; EOSINOPHILS # (AUTO) 0.1 10^3/uL (0.0-0.7); EOSINOPHILS % (AUTO) 1.2 %; HGB - HEMOGLOBIN 9.9 g/dL (12.0-16.0); LYMPHOCYTES # (AUTO) 2.6 10^3/uL (1.5-3.5); LYMPHOCYTES % (AUTO) 23.9 %; MEAN CORPUSCULAR HEMOGLOBIN 29.4 pg (27.0-31.0); MEAN CORPUSCULAR HGB CONC 32.6 g/dL (32.0-36.0); MEAN CORPUSCULAR VOLUME 90.2 fL (81.0-99.0); MEAN PLATELET VOLUME 8.8 fL (7.9-10.8); MONOCYTES # (AUTO) 0.6 10^3/uL (0.0-1.0); MONOCYTES % (AUTO) 5.9 %; NEUTROPHILS # (AUTO) 7.3 10^3/uL (1.5-6.6); NEUTROPHILS % (AUTO) 68.4 %; PLT - PLATELET COUNT 229 10^3/uL (130-450); RED BLOOD COUNT 3.37 10^6/uL (4.20-5.40); RED CELL DISTRIBUTION WIDTH 13.1 % (12.0-15.0); WHITE BLOOD COUNT 10.7 x10^3/uL (4.8-10.8)
[2020-08-28] MEDS: IBUPROFEN 800 MG TABLET PO SCH (09:43)
[2020-08-28] MEDS: DOCUSATE SODIUM 100 MG CAPSULE PO SCH (09:43)
[2020-08-28] MEDS: ACETAMINOPHEN 500 MG TABLET PO SCH (09:44)
--- NOTE | 2020-08-28 10:07 | PROVIDER PROGRESS NOTE ---
Subjective - Prog Note Date Prog Note Date: 08/28/20 Prog Note Time: 10:05 - Subjective Pt reports feeling: Improved (Pain 0/10. milk not in yet. notes perineal discomfort.) Objective - Vital Signs/Intake & Output Vital Signs: Vital Signs x48h Temp Pulse Resp BP Pulse Ox 08/28/20 05:42 36.8 C 80 16 116/71 100 Intake & Output: Intake & Output 08/25/20 08/26/20 08/27/20 08/28/20 23:59 23:59 23:59 23:59 Intake Total 500 400 Output Total 1300 1200 Balance -800 -800 - Objective General Appearance: positive: No acute distress, Alert Respiratory: positive: Chest non-tender, No respiratory distress, Breath sounds nml Cardiovascular: positive: Regular rate & rhythm, No murmur, No gallop Abdomen: positive: Non-tender, Mass (U-2 nontender) Extremities: negative: Calf tenderness, Jane's sign/cords - Lab Results Fish Bones: 08/28/20 04:57 08/26/20 20:34 Other Labs: Lab Results x24hrs 08/28/20 08/28/20 08/27/20 Range/Units 05:35 04:57 15:07 WBC 10.7 (4.8-10.8) x10^3/uL RBC 3.37 L (4.20-5.40) 10^6/uL Hgb 9.9 L (12.0-16.0) g/dL Hct 30.4 L (37.0-47.0) % MCV 90.2 (81.0-99.0) fL MCH 29.4 (27.0-31.0) pg MCHC 32.6 (32.0-36.0) g/dL RDW 13.1 (12.0-15.0) % Plt Count 229 (130-450) 10^3/uL MPV 8.8 (7.9-10.8) fL Neut # (Auto) 7.3 H (1.5-6.6) 10^3/uL Lymph # (Auto) 2.6 (1.5-3.5) 10^3/uL [place] # (Auto) 0.6 (0.0-1.0) 10^3/uL Eos # (Auto) 0.1 (0.0-0.7) 10^3/uL Baso # (Auto) 0.0 (0.0-0.1) 10^3/uL Absolute Nucleated RBC 0.00 x10^3/uL Nucleated RBC % 0.0 /100WBC POC Whole Bld Glucose 66 L 100 (70 - 100) mg/dL 08/27/20 Range/Units 10:06 WBC (4.8-10.8) x10^3/uL RBC (4.20-5.40) 10^6/uL Hgb (12.0-16.0) g/dL Hct (37.0-47.0) % MCV (81.0-99.0) fL MCH (27.0-31.0) pg MCHC (32.0-36.0) g/dL RDW (12.0-15.0) % Plt Count (130-450) 10^3/uL MPV (7.9-10.8) fL Neut # (Auto) (1.5-6.6) 10^3/uL Lymph # (Auto) (1.5-3.5) 10^3/uL [place] # (Auto) (0.0-1.0) 10^3/uL Eos # (Auto) (0.0-0.7) 10^3/uL Baso # (Auto) (0.0-0.1) 10^3/uL Absolute Nucleated RBC x10^3/uL Nucleated RBC % /100WBC POC Whole Bld Glucose 105 H (70 - 100) mg/dL Assessment/Plan - Problem List (1) (spontaneous vaginal delivery) Impression: excellent progress
[2020-08-28] MEDS ORDERED: RHO(D) IMMUNE GLOBULIN 300 MCG SYRINGE IM ONE (10:08)
--- NOTE | 2020-08-28 16:13 | Labor Flowsheet ---
Labor Flowsheet Datetime Report Generated by CPN: 08/28/2020 16:13 Datetime: 08/28/2020 13:15 VITAL SIGNS NBP Sys/Ligia/Mean (mmHg): 127 : 71 : 83 Pulse: 89 SpO2 (%): 99 Datetime: 08/27/2020 02:30 Stage of : Recovery Respirations: 16 PAIN Pain Scale: 0 Pain Presence: None/Denies Datetime: 08/27/2020 02:00 Temperature (C): 37.0 Temperature Route: Oral Datetime: 08/27/2020 00:35 LaborFlag: Labor Datetime: 08/27/2020 00:25 Anesthesia Level Check: T9 Datetime: 08/27/2020 00:15 UTERINE ACTIVITY Monitor Mode: External Frequency (min): 1.5-3 Quality: Strong Duration (sec): 40-60 Pattern: Normal: <= 5 Contractions in 10 Minutes Resting Tone (Palpate): Relaxed ASSESSMENT A Monitor Mode: External US Monitor Interventions for FHR: Ultrasound Adjusted FHR Baseline Rate : 155 Variability: Moderate 6-25 bpm Accelerations: Prolonged Decelerations: Variable Datetime: 08/26/2020 23:52 MEDICATIONS Pitocin (milliunits): Increased to @ 9 Datetime: 08/26/2020 23:40 Hygiene: Underpad Changed I/O Interventions: [place] Discontinued Datetime: 08/26/2020 23:30 STAGE 2 Pushing: Coached on Pushing Datetime: 08/26/2020 22:44 PATIENT CARE Oxygen Method: Room Air Datetime: 08/26/2020 21:45 Monitor Interventions for UA: Point Adjusted Datetime: 08/26/2020 21:25 Nausea/Vomiting: Denies Datetime: 08/26/2020 20:53 Patient Position/Activity: Left Lateral Datetime: 08/26/2020 20:36 MATERNAL ASSESSMENT Level of Consciousness: Alert Headache: Denies RUQ Epigastric Pain: Denies Datetime: 08/26/2020 20:00 VAGINAL EXAM Dilatation (cm): 4.0 Effacement (%): 100 Station: -1 Exam by: DR Giem Datetime: 08/26/2020 19:39 Epidural Procedure Other: Pump Started Datetime: 08/26/2020 19:34 Epidural Procedure: Loading Dose Datetime: 08/26/2020 19:30 Comments: indeter d/t to position for epidural placement Pain Type: Cramping Pain Location: Abdomen; Back Pain Relief Measures: Comfort Measures Datetime: 08/26/2020 19:22 PROCEDURE TIME OUT Procedure Verify: Correct Patient Identity; Correct Side and Site are Marked; Accurate Procedure Co nsent Form; Agreement on Procedure to be Done; Correct Patient Position ANESTHESIA Epidural Positioning: Sitting Datetime: 08/26/2020 19:05 Category: Category I Medication Comments: LR started Patient Care Comments: Back in bed, frog legged Datetime: 08/26/2020 19:02 FHR Baseline Changes: No Baseline Change Datetime: 08/26/2020 18:56 Anesthesia Comments: call placed to provider Datetime: 08/26/2020 18:54 Pain Goal: 8 Datetime: 08/26/2020 18:49 COMMUNICATION Communication: Call/Page Returned by Provider Communication Comments: SBAR given Datetime: 08/26/2020 18:46 Pain Assessment Comments: Pt. reports contractions are much more tolerable in jacuzzi Datetime: 08/26/2020 18:28 TEACHING Teaching Comments: shown how to use jacuzzi Datetime: 08/26/2020 16:10 Vital Sign Comments: will retake BP, pt. was yusuf Pain Coping: Talking Through Contractions Comfort Measures: Breathing/Relaxation Datetime: 08/26/2020 15:15 Membrane Status: Ruptured Membranes Rupture Method: Spontaneous Amniotic Fluid Color: Clear (Annotations: possibly light meconium. WIll cont. to monitor and will notify Peds if meconium clearly identified.) Amniotic Fluid Amount: Large Datetime: 08/26/2020 14:56 Vaginal Bleeding: None Cervix, Position: Posterior Datetime: 08/26/2020 14:09 Bedside Blood Glucose: 100 Datetime: 08/26/2020 14:02 Cervical Ripening Agents: Cytotec @ Datetime: 08/26/2020 12:30 Contraction Comments: pt. states that she is starting to feel an occassional contraction Datetime: 08/26/2020 09:11 Cervix, Consistency: Moderate
[2020-08-28 16:22] VITALS: BP 125/77
== END 2020-08-28 13:00 | disposition home or self-care (01) | DRG 806 ==
LOC: WFO 07:47 → FBP 07:54 → WFO 08:55 → FBP 08:56 → OBSVTOIN 19:25
PROVIDERS: ADMIT Obstetrics & Gynecology; ATTEND Obstetrics & Gynecology
PROC: 10E0XZZ Delivery of Products of Conception, External Approach (ICD-10-PCS; principal; 2020-08-27)
PROC: 0KQM0ZZ Repair Perineum Muscle, Open Approach (ICD-10-PCS; 2020-08-27)
DX: O24.415 Gestational diabetes mellitus in pregnancy, controlled by oral hypoglycemic drugs (principal); O75.2 Pyrexia during labor, not elsewhere classified; Z37.0 Single live birth; O76 Abnormality in fetal heart rate and rhythm complicating labor and delivery; O70.1 Second degree perineal laceration during delivery; O77.0 Labor and delivery complicated by meconium in amniotic fluid; O69.81X0 Labor and delivery complicated by cord around neck, without compression, not applicable or unspecified; Z3A.39 39 weeks gestation of pregnancy; Z87.59 Personal history of other complications of pregnancy, childbirth and the puerperium
CPT/HCPCS: 36415; 80053; 81599; 83033; 85025; 86850; 86900; 86901; 87070; 87205; 87635; A9270; J7120

== ENCOUNTER 2020-08-31 13:58 | Outpatient (CLI) | payer OTHER ==
--- NOTE | 2020-08-31 15:41 | Labor Flowsheet ---
Labor Flowsheet Datetime Report Generated by CPN: 08/31/2020 15:41 Datetime: 08/28/2020 13:15 VITAL SIGNS NBP Sys/Ligia/Mean (mmHg): 127 : 71 : 83 Pulse: 89 SpO2 (%): 99 Datetime: 08/27/2020 02:30 Stage of : Recovery Respirations: 16 PAIN Pain Scale: 0 Pain Presence: None/Denies Datetime: 08/27/2020 02:00 Temperature (C): 37.0 Temperature Route: Oral Datetime: 08/27/2020 00:35 LaborFlag: Labor Datetime: 08/27/2020 00:25 Anesthesia Level Check: T9 Datetime: 08/27/2020 00:15 UTERINE ACTIVITY Monitor Mode: External Frequency (min): 1.5-3 Quality: Strong Duration (sec): 40-60 Pattern: Normal: <= 5 Contractions in 10 Minutes Resting Tone (Palpate): Relaxed ASSESSMENT A Monitor Mode: External US Monitor Interventions for FHR: Ultrasound Adjusted FHR Baseline Rate : 155 Variability: Moderate 6-25 bpm Accelerations: Prolonged Decelerations: Variable Datetime: 08/26/2020 23:52 MEDICATIONS Pitocin (milliunits): Increased to @ 9 Datetime: 08/26/2020 23:40 Hygiene: Underpad Changed I/O Interventions: [place] Discontinued Datetime: 08/26/2020 23:30 STAGE 2 Pushing: Coached on Pushing Datetime: 08/26/2020 22:44 PATIENT CARE Oxygen Method: Room Air Datetime: 08/26/2020 21:45 Monitor Interventions for UA: [place] Adjusted Datetime: 08/26/2020 21:25 Nausea/Vomiting: Denies Datetime: 08/26/2020 20:53 Patient Position/Activity: Left Lateral Datetime: 08/26/2020 20:36 MATERNAL ASSESSMENT Level of Consciousness: Alert Headache: Denies RUQ Epigastric Pain: Denies Datetime: 08/26/2020 20:00 VAGINAL EXAM Dilatation (cm): 4.0 Effacement (%): 100 Station: -1 Exam by: DR Giem Datetime: 08/26/2020 19:39 Epidural Procedure Other: Pump Started Datetime: 08/26/2020 19:34 Epidural Procedure: Loading Dose Datetime: 08/26/2020 19:30 Comments: indeter d/t to position for epidural placement Pain Type: Cramping Pain Location: Abdomen; Back Pain Relief Measures: Comfort Measures Datetime: 08/26/2020 19:22 PROCEDURE TIME OUT Procedure Verify: Correct Patient Identity; Correct Side and Site are Marked; Accurate Procedure Co nsent Form; Agreement on Procedure to be Done; Correct Patient Position ANESTHESIA Epidural Positioning: Sitting Datetime: 08/26/2020 19:05 Category: Category I Medication Comments: LR started Patient Care Comments: Back in bed, frog legged Datetime: 08/26/2020 19:02 FHR Baseline Changes: No Baseline Change Datetime: 08/26/2020 18:56 Anesthesia Comments: call placed to provider Datetime: 08/26/2020 18:54 Pain Goal: 8 Datetime: 08/26/2020 18:49 COMMUNICATION Communication: Call/Page Returned by Provider Communication Comments: SBAR given Datetime: 08/26/2020 18:46 Pain Assessment Comments: Pt. reports contractions are much more tolerable in jacuzzi Datetime: 08/26/2020 18:28 TEACHING Teaching Comments: shown how to use jacuzzi Datetime: 08/26/2020 16:10 Vital Sign Comments: will retake BP, pt. was yusuf Pain Coping: Talking Through Contractions Comfort Measures: Breathing/Relaxation Datetime: 08/26/2020 15:15 Membrane Status: Ruptured Membranes Rupture Method: Spontaneous Amniotic Fluid Color: Clear (Annotations: possibly light meconium. WIll cont. to monitor and will notify Peds if meconium clearly identified.) Amniotic Fluid Amount: Large Datetime: 08/26/2020 14:56 Vaginal Bleeding: None Cervix, Position: Posterior Datetime: 08/26/2020 14:09 Bedside Blood Glucose: 100 Datetime: 08/26/2020 14:02 Cervical Ripening Agents: Cytotec @ Datetime: 08/26/2020 12:30 Contraction Comments: pt. states that she is starting to feel an occassional contraction Datetime: 08/26/2020 09:11 Cervix, Consistency: Moderate
== END 2020-08-31 14:30 | disposition home or self-care (01) ==
LOC: WFO 13:58 → FBP 14:00 → WFO 14:30
PROVIDERS: ATTEND Obstetrics & Gynecology
DX: O92.70 Unspecified disorders of lactation (principal)
CPT/HCPCS: 99402

== ENCOUNTER 2021-08-22 08:00 | Outpatient (CLI) | payer OTHER ==
[2021-08-22 18:43] LABS: BILIRUBIN,URINE NEGATIVE (NEGATIVE); GLUCOSE, URINE (UA) NEGATIVE (NEGATIVE); KETONES,URINE (UA) NEGATIVE (NEGATIVE); LEUKOCYTE ESTERASE, URINE NEGATIVE (NEGATIVE); NITRITE,URINE NEGATIVE (NEGATIVE); OCCULT BLOOD,URINE TRACE-INTA (NEGATIVE); PH,URINE 5.5 PH (5.0-7.5); PROTEIN,URINE NEGATIVE (NEGATIVE); UROBILINOGEN,URINE 0.2 (NORMAL) E.U./dL (NORMAL)
[2021-08-22 18:44] LABS: CLARITY,URINE CLEAR (CLEAR)
[2021-08-22 18:50] LABS: BASOPHILS % (AUTO) 0.5 %; EOSINOPHILS # (AUTO) 0.1 10^3/uL (0.0-0.7); EOSINOPHILS % (AUTO) 1.1 %; HCT - HEMATOCRIT 37.2 % (37.0-47.0); HGB - HEMOGLOBIN 12.4 g/dL (12.0-16.0); LYMPHOCYTES # (AUTO) 2.2 10^3/uL (1.5-3.5); LYMPHOCYTES % (AUTO) 26.1 %; MEAN CORPUSCULAR HEMOGLOBIN 28.8 pg (27.0-31.0); MEAN CORPUSCULAR HGB CONC 33.3 g/dL (32.0-36.0); MEAN CORPUSCULAR VOLUME 86.5 fL (81.0-99.0); MEAN PLATELET VOLUME 9.8 fL (7.9-10.8); MONOCYTES # (AUTO) 0.5 10^3/uL (0.0-1.0); NEUTROPHILS # (AUTO) 5.7 10^3/uL (1.5-6.6); NEUTROPHILS % (AUTO) 66.1 %; PLT - PLATELET COUNT 318 10^3/uL (130-450); WHITE BLOOD COUNT 8.6 x10^3/uL (4.8-10.8)
[2021-08-22 19:29] LABS: ALBUMIN 4.5 g/dL (3.2-5.5); ALBUMIN/GLOBULIN RATIO 1.5 (1.0-2.2); BILIRUBIN,TOTAL 0.4 mg/dL (0.2-1.0); CALCIUM 9.4 mg/dL (8.5-10.3); CREATININE 0.7 mg/dL (0.4-1.0); POTASSIUM 3.5 mmol/L (3.5-5.0); TOTAL PROTEIN 7.6 g/dL (6.7-8.2)
[2021-08-22 20:04] LABS: BACTERIA,URINE Rare /HPF (None Seen); RBC,URINE None Seen /HPF (0-5); SQUAMOUS EPITHELIAL CELL,UR FEW Squamous (<= Few); WBC,URINE 0-3 /HPF (0-5)
== END 2021-08-22 23:59 | disposition home or self-care (01) ==
LOC: LAB.WCP 08:00
PROVIDERS: ATTEND Family Medicine
DX: R20.8 Other disturbances of skin sensation (principal)
CPT/HCPCS: 36415; 80053; 81001; 85025; 87086

== ENCOUNTER 2021-09-04 12:30 | Outpatient (CLI) | payer OTHER ==
--- NOTE | 2021-09-04 17:13 | Ultrasound Report ---
PROCEDURE: Abdomen Complete INDICATIONS: ABD PAIN TECHNIQUE: Real-time scanning was performed of the abdominal and retroperitoneal organs, with image documentatio n. COMPARISON: None. FINDINGS: Liver: Liver is normal in size and homogeneous in echotexture. Liver is diffusely echogenic. Gallbladder: Gallbladder sonographically normal. No gallstones. Gallbladder wall measures 1.8 mm. No pericholecystic fluid. No sonographic Fajardo sign. Biliary ducts: Intrahepatic bile ducts are non-dilated. Extrahepatic bile duct caliber measures 2.9 mm. Normal is 6-7 mm or less in diameter, or 10 mm or less post-cholecystectomy. Pancreas: Visualized portions of the pancreas are sonographically normal. Spleen: Spleen is normal in size and homogeneous in echotexture. Kidneys: Kidneys are normal in size and echotexture. Right kidney measures 12.0 cm long; left kidne y measures 11.1 cm long. No hydronephrosis or nephrolithiasis. No solid masses. Aorta: Visualized aorta is normal in caliber at less than 3 cm. Iliacs: Proximal common iliac arteries are normal in caliber at less than 2.5 cm. IVC: Intrahepatic inferior vena cava is patent. Miscellaneous: No free abdominal fluid. IMPRESSION: 1. Echogenic liver. Finding typically represents fatty infiltration, however the finding is nonspecif ic and other etiologies including hepatic cirrhosis can produce a similar appearance. Recommend corre lation with clinical and laboratory data. 2. Otherwise, normal abdominal sonogram without evidence of cholelithiasis or cholecystitis. Reviewed by: Colleen Gonzalez MD, PhD on 09/04/2021 5:11 PM PST Approved by: Colleen Gonzalez MD, PhD on 09/04/2021 5:11 PM PST Station ID: [id number]
== END 2021-09-04 12:31 | disposition home or self-care (01) ==
LOC: DI 12:30
PROVIDERS: ATTEND Family Medicine
DX: R10.9 Unspecified abdominal pain (principal); R20.8 Other disturbances of skin sensation

== ENCOUNTER 2021-10-10 13:23 | Outpatient (CLI) | payer OTHER ==
[2021-10-10 18:00] LABS: BASOPHILS # (AUTO) 0.1 10^3/uL (0.0-0.1); BASOPHILS % (AUTO) 0.5 %; EOSINOPHILS # (AUTO) 0.1 10^3/uL (0.0-0.7); HCT - HEMATOCRIT 36.7 % (37.0-47.0); HGB - HEMOGLOBIN 12.4 g/dL (12.0-16.0); LYMPHOCYTES # (AUTO) 1.8 10^3/uL (1.5-3.5); LYMPHOCYTES % (AUTO) 20.2 %; MEAN CORPUSCULAR HEMOGLOBIN 29.7 pg (27.0-31.0); MEAN CORPUSCULAR HGB CONC 33.8 g/dL (32.0-36.0); MEAN CORPUSCULAR VOLUME 87.8 fL (81.0-99.0); MEAN PLATELET VOLUME 9.8 fL (7.9-10.8); MONOCYTES # (AUTO) 0.6 10^3/uL (0.0-1.0); MONOCYTES % (AUTO) 6.6 %; NEUTROPHILS # (AUTO) 6.5 10^3/uL (1.5-6.6); NEUTROPHILS % (AUTO) 71.5 %; PLT - PLATELET COUNT 357 10^3/uL (130-450); RED BLOOD COUNT 4.18 10^6/uL (4.20-5.40); RED CELL DISTRIBUTION WIDTH 12.2 % (12.0-15.0); WHITE BLOOD COUNT 9.1 x10^3/uL (4.8-10.8)
[2021-10-10 18:07] LABS: ALBUMIN 4.5 g/dL (3.2-5.5); BILIRUBIN,TOTAL 0.4 mg/dL (0.2-1.0); CALCIUM 9.2 mg/dL (8.5-10.3); CREATININE 0.7 mg/dL (0.4-1.0); POTASSIUM 3.5 mmol/L (3.5-5.0); TOTAL PROTEIN 6.8 g/dL (6.7-8.2)
[2021-10-10 18:19] LABS: HCG,QUALITATIVE BLOOD POSITIVE
[2021-10-10 21:01] LABS: ESTIMATED AVERAGE GLUCOSE 105 mg/dL (70-100); HEMOGLOBIN A1c% 5.3 % (4.27-6.07)
== END 2021-10-10 13:24 | disposition home or self-care (01) ==
LOC: LAB.N 13:23
PROVIDERS: ATTEND Nurse Practitioner
DX: Z00.00 Encounter for general adult medical examination without abnormal findings (principal); E66.3 Overweight; Z87.59 Personal history of other complications of pregnancy, childbirth and the puerperium
CPT/HCPCS: 36415; 80053; 83036; 84703; 85025

== ENCOUNTER 2021-10-20 10:55 | Emergency (ER) | payer OTHER ==
[2021-10-20 11:15] LABS: BASOPHILS # (AUTO) 0.1 10^3/uL (0.0-0.1); BASOPHILS % (AUTO) 0.5 %; EOSINOPHILS # (AUTO) 0.1 10^3/uL (0.0-0.7); EOSINOPHILS % (AUTO) 1.1 %; HGB - HEMOGLOBIN 12.8 g/dL (12.0-16.0); LYMPHOCYTES # (AUTO) 1.7 10^3/uL (1.5-3.5); LYMPHOCYTES % (AUTO) 18.2 %; MEAN CORPUSCULAR HEMOGLOBIN 29.4 pg (27.0-31.0); MEAN CORPUSCULAR HGB CONC 33.7 g/dL (32.0-36.0); MEAN CORPUSCULAR VOLUME 87.2 fL (81.0-99.0); MEAN PLATELET VOLUME 8.9 fL (7.9-10.8); MONOCYTES # (AUTO) 0.6 10^3/uL (0.0-1.0); NEUTROPHILS # (AUTO) 6.9 10^3/uL (1.5-6.6); NEUTROPHILS % (AUTO) 73.9 %; PLT - PLATELET COUNT 306 10^3/uL (130-450); RED BLOOD COUNT 4.36 10^6/uL (4.20-5.40); RED CELL DISTRIBUTION WIDTH 12.1 % (12.0-15.0); WHITE BLOOD COUNT 9.4 x10^3/uL (4.8-10.8)
[2021-10-20 11:32] LABS: ALBUMIN 4.5 g/dL (3.2-5.5); ALBUMIN/GLOBULIN RATIO 1.6 (1.0-2.2); BILIRUBIN,TOTAL 0.6 mg/dL (0.2-1.0); CALCIUM 8.8 mg/dL (8.5-10.3); CREATININE 0.7 mg/dL (0.4-1.0); POTASSIUM 3.7 mmol/L (3.5-5.0); TOTAL PROTEIN 7.4 g/dL (6.7-8.2)
--- NOTE | 2021-10-20 13:59 | ED Physician Documentation ---
PD HPI FEMALE - Stated complaint Stated Complaint: FEMALE - Chief complaint Chief Complaint: Abd Pain - History obtained from History obtained from: Patient - History of Present Illness Timing - onset: How many days ago (2) Timing - duration: Days (2) Timing - details: Gradual onset, Intermittant Associated symptoms: Abdominal pain, Vaginal bleeding. No: Fever, Vaginal discharge, Dysuria Contributing factors: (about 6 weeks by dates with positive home test.) OB-YOUTH PROBATION OFFICER History: G (3), P (1), Prior ectopic (1 on left side) Similar symptoms before: Has not had sx before Recently seen: Not recently seen Review of Systems Constitutional: denies: Fever, Chills Nose: denies: Rhinorrhea / runny nose, Congestion Throat: denies: Sore throat Respiratory: denies: Cough GI: denies: Nausea, Vomiting, Diarrhea : reports: Vaginal bleeding, Now EGA. 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) - Present Medications Home Medications: Ambulatory Orders Medication Instructions Recorded Confirmed Ferrous Sulfate 325 mg PO DAILY 07/13/20 07/13/20 Pnv No.95/Ferrous Fum/Folic AC 1 each PO DAILY 07/13/20 07/13/20 [ Caplet] - Allergies Allergies/Adverse Reactions: Allergies Allergy/AdvReac Type Severity Reaction Status Date / Time No Known Drug Allergies Allergy Verified 10/20/21 11:03 - Social History Smoking Status: Never smoker PD ED PE NORMAL - Vitals Vital signs reviewed: Yes - General General: Alert and oriented X 3, Well developed/nourished - Cardiac Cardiac: RRR, No murmur - Respiratory Respiratory: Clear bilaterally - Abdomen Abdomen: Normal bowel sounds, Soft, Non tender - Derm Derm: Normal color, Warm and dry - Extremities Extremities: Normal ROM s pain, No edema Results - Vitals Vitals: Vital Signs - 24 hr 10/20/21 10/20/21 10/20/21 11:00 13:57 15:00 Temperature 36.0 C L 36.6 C Heart Rate 98 85 83 Respiratory 16 16 14 Rate Blood Pressure 132/82 H 124/83 H 122/75 O2 Saturation 99 100 99 Oxygen O2 Source Room air - Labs Labs: Laboratory Tests 10/20/21 10/20/21 10/20/21 11:11 11:11 11:11 WBC 9.4 RBC 4.36 Hgb 12.8 Hct 38.0 MCV 87.2 MCH 29.4 MCHC 33.7 RDW 12.1 Plt Count 306 MPV 8.9 Neut # (Auto) 6.9 H Lymph # (Auto) 1.7 [place] # (Auto) 0.6 Eos # (Auto) 0.1 Baso # (Auto) 0.1 Absolute Nucleated RBC 0.00 Nucleated RBC % 0.0 Sodium 137 Potassium 3.7 Chloride 100 L Carbon Dioxide 24 Anion Gap 13.0 BUN 11 Creatinine 0.7 Estimated GFR (MDRD) 100 Glucose 94 Calcium 8.8 Total Bilirubin 0.6 AST 14 ALT 13 Alkaline Phosphatase 70 Total Protein 7.4 Albumin 4.5 Globulin 2.9 Albumin/Globulin Ratio 1.6 Lipase 31 HCG, Quant 665.05 - Rads (name of study) OB U/S Radiology: Prelim report reviewed (intrauterine gestational sac without pole. No heart beat seen. Could be early versus blighted ovum. Correlate with short interval U/S and HCG.), Final report received, See rad report PD MEDICAL DECISION MAKING - ED course Complexity details: reviewed results (intrauterine gestational sac without pole. No heart beat seen. Could be early versus blighted ovum. Correlate with short interval U/S and HCG.), considered differential (early versus blighted ovum/threatened miscarriage. ), d/w patient Departure - Departure Disposition: 01 Home, Self Care Clinical Impression: Threatened miscarriage in early , Vaginal bleeding affecting early Condition: Stable Record reviewed to determine appropriate education?: Yes Instructions: ED Miscarriage Poss Follow-Up: Pavithra Pandya ARNP [Primary Care Provider] - Rachana Carbone DO [Provider Admit Priv/Credential] - Comments: At this point there does appear to be a gestational sac in the uterus. It is too early to definitely see a heartbeat or such. Your hCG level is low consistent with that early date. To better assess the viability of the , at this point we would typically recheck your blood hCG level in 3 to 4 days to see if it is going up appropriately (which will occur most of the time as some bleeding is common), or if the level is going down to suggest incomplete miscarriage. Return to the ER if significant increase in pain, bleeding, or develop fever or other concerns. Otherwise follow-up with either your primary care provider or RESIDENTIAL SALES MANAGER to have your blood level rechecked in 3 to 4 days. If you are calling the gynecology office, tell them that you were seen in the ER with the concern of possible miscarriage and they typically will get you in a sooner follow-up. Tylenol or ibuprofen are okay in early if you need for cramps. Stay well-hydrated. Normal activity. Commonly they would suggest no intercourse or vigorous physical activity such as calisthenics. Otherwise normal activity and working out and such are okay. Discharge Date/Time: 10/20/21 15:12
[2021-10-20] MEDS: RHO(D) IMMUNE GLOBULIN 300 MCG SYRINGE IM STA (14:53)
--- NOTE | 2021-10-20 14:56 | Ultrasound Report ---
PROCEDURE: OB First Trimester w/TV INDICATIONS: Preg/VB OUTSIDE/PRIOR DATING DATA: Last menstrual period (LMP): 08/10/2021. LMP-based estimated date of delivery (GLORIA): 05/17/2022. First dating scan (date and location): 10/20/2021. Estimated date of delivery ([place]ORIA) from first dating scan: Not applicable. TECHNIQUE: Real-time scanning was performed of the fetus and maternal pelvic organs, with image documentation. Endovaginal scanning was also performed to better visualize the fetus and maternal ovaries. COMPARISON: OB ultrasound 07/24/2020, 04/18/2020 FINDINGS: Intrauterine gestational sac is identified measuring 5 mm corresponding to 5 weeks 2 days. There is n o visualized renal pole or yolk sac identified. Maternal organs: Ovaries demonstrate a left corpus luteal cyst.. There is a focus of increased echog enicity within the left ovary measuring 7 x 6 x 8 mm. IMPRESSION: Intrauterine gestational sac without visualized pole or yolk sac. Recommend correlation to beta hCG levels and short interval imaging follow-up to document interval progression versus blighted ovu m. Focus of increased echogenicity within the left ovary overall nonspecific on the basis of this exam. Increased echogenicity is suggestive of a fat component or less likely calcification given appearance . Continued interval follow-up is recommended. It is noted this was not visualized on prior exams, al though prior exams didn't demonstrate presence of intrauterine within the second trimester somewhat limiting ovarian visualization. Reviewed by: Rosa Diego MD on 10/20/2021 2:54 PM PDT Approved by: Rosa Diego MD on 10/20/2021 2:54 PM PDT Station ID: [id number]
[2021-10-20 15:10] VITALS: BP 122/75
== END 2021-10-20 15:12 | disposition home or self-care (01) ==
LOC: ED 10:55
DX: O20.0 Threatened abortion (principal); Z3A.01 Less than 8 weeks gestation of pregnancy
CPT/HCPCS: 36415; 80053; 83690; 84702; 85025; 96372; 99282; 99284

== ENCOUNTER 2022-01-10 15:44 | Outpatient (CLI) | payer OTHER ==
[2022-01-10 18:12] LABS: HCG,QUALITATIVE BLOOD POSITIVE
== END 2022-01-10 15:45 | disposition home or self-care (01) ==
LOC: LAB.N 15:44
PROVIDERS: ATTEND Physician Assistant
DX: Z33.1 Pregnant state, incidental (principal)
CPT/HCPCS: 36415; 84703

== ENCOUNTER 2022-01-14 13:15 | Emergency (ER) | payer OTHER ==
[2022-01-14 13:55] LABS: BASOPHILS # (AUTO) 0.1 10^3/uL (0.0-0.1); BASOPHILS % (AUTO) 0.5 %; EOSINOPHILS # (AUTO) 0.1 10^3/uL (0.0-0.7); EOSINOPHILS % (AUTO) 1.1 %; HGB - HEMOGLOBIN 12.6 g/dL (12.0-16.0); LYMPHOCYTES % (AUTO) 19.1 %; MEAN CORPUSCULAR HEMOGLOBIN 29.6 pg (27.0-31.0); MEAN CORPUSCULAR HGB CONC 34.1 g/dL (32.0-36.0); MEAN CORPUSCULAR VOLUME 87.1 fL (81.0-99.0); MONOCYTES # (AUTO) 0.5 10^3/uL (0.0-1.0); MONOCYTES % (AUTO) 5.1 %; NEUTROPHILS # (AUTO) 7.8 10^3/uL (1.5-6.6); NEUTROPHILS % (AUTO) 73.9 %; PLT - PLATELET COUNT 369 10^3/uL (130-450); RED BLOOD COUNT 4.25 10^6/uL (4.20-5.40); RED CELL DISTRIBUTION WIDTH 12.1 % (12.0-15.0); WHITE BLOOD COUNT 10.6 x10^3/uL (4.8-10.8)
[2022-01-14 14:08] LABS: ALBUMIN 4.5 g/dL (3.2-5.5); ALBUMIN/GLOBULIN RATIO 1.4 (1.0-2.2); BILIRUBIN,TOTAL 0.3 mg/dL (0.2-1.0); CALCIUM 9.5 mg/dL (8.5-10.3); CREATININE 0.8 mg/dL (0.4-1.0); POTASSIUM 3.6 mmol/L (3.5-5.0); TOTAL PROTEIN 7.8 g/dL (6.7-8.2)
--- NOTE | 2022-01-14 15:37 | Ultrasound Report ---
PROCEDURE: OB First Trimester w/TV INDICATIONS: L pelvic pain, + preg, h/o R ectopic OUTSIDE/PRIOR DATING DATA: Last menstrual period (LMP): 12/12/2021. LMP-based estimated date of delivery (GLORIA): 09/18/2022. TECHNIQUE: Real-time scanning was performed of the fetus and maternal pelvic organs, with image documentation. Endovaginal scanning was also performed to better visualize the fetus and maternal ovaries. COMPARISON: None FINDINGS: Uterus normal in size measures 8.6 x 4.3 x 4.9 cm. Endometrial thickness is 1.0 cm. No evidence of in trauterine . There is a left ovarian thick-walled cyst probably reflects a corpus luteum cyst measuring 2.5 x 2.4 cm. Both ovaries otherwise appropriate in size and echotexture. No adnexal mass. No free fluid IMPRESSION: No evidence of intrauterine . Differential possibilities include normal early , mis sed and nonvisualized ectopic . Reviewed by: Marshall Mello MD on 01/14/2022 2:35 PM ANNE-MARIE Approved by: Marshall Mello MD on 01/14/2022 2:35 PM ANNE-MARIE Station ID: [id number]
--- NOTE | 2022-01-14 16:29 | ED Physician Documentation ---
History of Present Illness - Stated complaint Stated Complaint: LEFT SIDE PX - Chief complaint Chief Complaint: Abd Pain - History obtained from History obtained from: Patient - History of Present Illness Timing: Today Pain level max: 3 Pain level now: 2 - Additonal information Additional information: 26-year-old female, 4 para 1 presents to the emergency department complaining of left pelvic pain. She states her LMP was the middle of November. She states positive test on January 10. She had a recent miscarriage about 3-1/2 months ago. Has had a history of an ectopic on the right side that required surgery and a salpingotomy. She states that she developed left- sided pelvic pain today. Concerned about potential ectopic . No vaginal bleeding or discharge. No fevers. No vomiting. 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) - Present Medications Home Medications: Ambulatory Orders Medication Instructions Recorded Confirmed Ferrous Sulfate 325 mg PO DAILY 07/13/20 07/13/20 Pnv No.95/Ferrous Fum/Folic AC 1 each PO DAILY 07/13/20 07/13/20 [ Caplet] - Allergies Allergies/Adverse Reactions: Allergies Allergy/AdvReac Type Severity Reaction Status Date / Time No Known Drug Allergies Allergy Verified 01/14/22 13:34 - Social History Does the pt smoke?: No Smoking Status: Never smoker Does the pt drink ETOH?: No Does the pt have substance abuse?: No PD ED PE NORMAL - Vitals Vital signs reviewed: Yes - General General: Alert and oriented X 3, No acute distress, Well developed/nourished - HEENT HEENT: PERRL, Moist mucous membranes - Neck Neck: Supple, no meningeal sign - Cardiac Cardiac: RRR, Strong equal pulses - Respiratory Respiratory: No respiratory distress, Clear bilaterally - Abdomen Abdomen: Soft, Non distended, Other (Mild tenderness palpation left low pelvic. No peritoneal signs. Abdomen otherwise soft, nontender nondistended) - Back Back: No spinal TTP - Derm Derm: Warm and dry - Extremities Extremities: No edema, No calf tenderness / cord - Neuro Neuro: Alert and oriented X 3 - Psych Psych: Normal mood, Normal affect Results - Vitals Vitals: Vital Signs - 24 hr 01/14/22 01/14/22 13:30 16:39 Temperature 37 C 37 C Heart Rate 99 97 Respiratory 16 14 Rate Blood Pressure 138/74 H 121/77 O2 Saturation 100 99 Oxygen O2 Source Room air - Labs Labs: Laboratory Tests 01/14/22 01/14/22 01/14/22 13:49 13:49 13:49 WBC 10.6 RBC 4.25 Hgb 12.6 Hct 37.0 MCV 87.1 MCH 29.6 MCHC 34.1 RDW 12.1 Plt Count 369 MPV 9.0 Neut # (Auto) 7.8 H Lymph # (Auto) 2.0 [place] # (Auto) 0.5 Eos # (Auto) 0.1 Baso # (Auto) 0.1 Absolute Nucleated RBC 0.00 Nucleated RBC % 0.0 Sodium 138 Potassium 3.6 Chloride 104 Carbon Dioxide 25 Anion Gap 9.0 BUN 13 Creatinine 0.8 Estimated GFR (MDRD) 85 L Glucose 125 H Calcium 9.5 Total Bilirubin 0.3 AST 12 ALT 11 Alkaline Phosphatase 76 Total Protein 7.8 Albumin 4.5 Globulin 3.3 Albumin/Globulin Ratio 1.4 Lipase 34 HCG, Quant 395.18 - Rads (name of study) Pelvic ultrasound Radiology: Final report received, EMP read contemporaneously, See rad report PD MEDICAL DECISION MAKING - ED course Complexity details: reviewed results, re-evaluated patient, considered differential, d/w patient, d/w reporting consultant ED course: 26-year-old female with a hCG of approximately 390. OB ultrasound does not show any evidence of intrauterine . There is a left ovarian thick-walled cyst, likely reflecting corpus luteum secondary to radiology interpretation. Discussed the case with Dr. Carbone, OB, she recommends follow-up in clinic in 2 days for repeat hCG. Ectopic precautions were given at bedside. Patient is hemodynamically stable and comfortable going home at this time. She will return for any worsening of her symptoms including worsening pain. Otherwise she will follow-up with OB in 2 days. Patient counseled regarding signs and symptoms for which I believe and urgent re-evaluation would be necessary. Patient with good understanding of and agreement to plan and is comfortable going home at this time This document was made in part using voice recognition software. While efforts are made to proofread this document, sound alike and grammatical errors may occur. IMPRESSION: No evidence of intrauterine . Differential possibilities include normal early , missed and nonvisualized ectopic . Departure - Departure Disposition: 01 Home, Self Care Clinical Impression: Pelvic pain affecting Qualifiers: Trimester: first trimester Qualified Code(s): O26.891 - Other specified related conditions, first trimester Condition: Good Instructions: ED Abdominal Pain Rule Out Ectopic Follow-Up: Pavithra Pandya ARNP [Primary Care Provider] - Rachana Carbone DO [Provider Admit Priv/Credential] - [facility] [Provider Group] - 01/16/22 Comments: I spoke with Dr. Carbone today. She is going to have the clinic call you tomorrow to arrange follow-up and repeat hCG testing on Saturday. If they are unable to see you for any reason, return here for repeat testing. If your pain worsens during that time, you should also return here for further evaluation. Discharge Date/Time: 01/14/22 16:47
[2022-01-14 16:41] VITALS: BP 121/77
== END 2022-01-14 16:47 | disposition home or self-care (01) ==
LOC: ED 13:15
DX: O26.891 Other specified pregnancy related conditions, first trimester (principal); R10.2 Pelvic and perineal pain; Z3A.00 Weeks of gestation of pregnancy not specified
CPT/HCPCS: 36415; 80053; 83690; 84702; 85025; 99282; 99284

== ENCOUNTER 2022-01-16 22:31 | Outpatient (CLI) | payer OTHER ==
--- NOTE | 2022-01-17 12:32 | Ultrasound Report ---
PROCEDURE: OB First Trimester w/TV INDICATIONS: , ABD PAIN OUTSIDE/PRIOR DATING DATA: Last menstrual period (LMP): 12/12/21. LMP-based estimated date of delivery ([place]ORIA): 09/18/22. First dating scan (date and location): 01/14/22. Estimated date of delivery ([place]) from first dating scan: n/a. TECHNIQUE: Real-time scanning was performed of the fetus and maternal pelvic organs, with image documentation. Endovaginal scanning was also performed to better visualize the fetus and maternal ovaries. COMPARISON: OB Ultrasound 01/16/22 FINDINGS: Embryo: Intrauterine gestational sac is present, measuring 3 mm, corresponding to 5 weeks 0 days. N o visualized pole or heart rate. Small subchorionic hemorrhage is present measuring 18 x 19 x 1 1mm. Measurement variability in dating: +/- 4 weeks by LMP, +/- 7 days by mean sac diameter (use before 6 weeks gestation if crown-rump length not able to be measured), +/- 5 days by crown-rump length (6-12 weeks gestation). Maternal organs: Ovaries demonstrate what appears to be a left corpus luteal cyst. IMPRESSION: Interval intrauterine gestational sac without pole or heart tones. Recommend correlation to [facility] and short interval followup. Reviewed by: Rosa Diego MD on 01/17/2022 12:31 PM PDT Approved by: Rosa Diego MD on 01/17/2022 12:31 PM PDT Station ID: [id number]
== END 2022-01-16 22:32 | disposition home or self-care (01) ==
LOC: DI 22:31
PROVIDERS: ATTEND Physician Assistant
DX: O99.891 Other specified diseases and conditions complicating pregnancy (principal); R10.32 Left lower quadrant pain; Z3A.00 Weeks of gestation of pregnancy not specified
CPT/HCPCS: 36415; 84702

== ENCOUNTER 2022-02-02 18:56 | Outpatient (CLI) | payer OTHER ==
--- NOTE | 2022-02-03 10:23 | Ultrasound Report ---
PROCEDURE: OB First Trimester w/TV INDICATIONS: POSITIVE TEST OUTSIDE/PRIOR DATING DATA: Last menstrual period (LMP): 12/12/2021. LMP-based estimated date of delivery (GLORIA): 09/18/2022. First dating scan (date and location): 02/02/2022. Estimated date of delivery (GLORIA) from first dating scan: 09/21/2022. TECHNIQUE: Real-time scanning was performed of the fetus and maternal pelvic organs, with image documentation. Endovaginal scanning was also performed to better visualize the fetus and maternal ovaries. COMPARISON: OB ultrasound, 01/14/2022 and 01/16/2010 22. FINDINGS: There is a single living intrauterine gestation. Based on the crown-rump length, the estim ated gestational age is 7 weeks 0 days. cardiac activity is present with heart rate 143 B PM. A normal-appearing yolk sac is present. A small There is a small paragestational bleed measuring 1.0 x 1.3 x 0.9 cm. Measurement variability in dating: +/- 4 weeks by LMP, +/- 7 days by mean sac diameter (use before 6 weeks gestation if crown-rump length not able to be measured), +/- 5 days by crown-rump length (6-12 weeks gestation). Maternal organs: Ovaries are grossly normal. There is a corpus due to cyst in the left ovary. IMPRESSION: 1. There is a single living intrauterine gestation with an estimated gestational age 7 weeks 0 day. U ltrasound GLORIA 09/21/2022. 2. Small paragestational bleed. 3. A corpus luteal cyst in the left ovary. Reviewed by: Stanton Healy MD on 02/03/2022 10:21 AM PDT Approved by: Stanton Healy MD on 02/03/2022 10:21 AM PDT Station ID: [id number]
== END 2022-02-02 18:57 | disposition home or self-care (01) ==
LOC: DI 18:56
PROVIDERS: ATTEND Obstetrics & Gynecology
DX: Z32.01 Encounter for pregnancy test, result positive (principal); O20.9 Hemorrhage in early pregnancy, unspecified; Z3A.01 Less than 8 weeks gestation of pregnancy; O34.81 Maternal care for other abnormalities of pelvic organs, first trimester; N83.12 Corpus luteum cyst of left ovary

== ENCOUNTER 2022-02-28 08:00 | Outpatient (CLI) | payer OTHER ==
[2022-03-01 01:28] LABS: CHLAMYDIA TRACHOMATIS DNA NEGATIVE (NEGATIVE); NEISSERIA GONORRHOEAE DNA NEGATIVE (NEGATIVE); TRICHOMONAS VAGINALIS DNA NEGATIVE (NEGATIVE)
== END 2022-02-28 23:59 | disposition home or self-care (01) ==
LOC: LAB.WC 08:00
PROVIDERS: ATTEND Obstetrics & Gynecology
DX: Z11.3 Encounter for screening for infections with a predominantly sexual mode of transmission (principal)
CPT/HCPCS: 87491; 87591; 87661

== ENCOUNTER 2022-05-04 15:44 | Outpatient (CLI) | payer OTHER ==
--- NOTE | 2022-05-05 03:24 | Ultrasound Report ---
PROCEDURE: OB Detailed Eval INDICATIONS: SUPERVISION OF OUTSIDE/PRIOR DATING DATA: Last menstrual period (LMP): 12/12/21. LMP-based estimated date of delivery (GLORIA): 09/18/2022. First dating scan (date and location): 02/02/2022. Estimated date of delivery (GLORIA) from first dating scan: 09/21/2022. The below data below was generated using the GLORIA of 09/21/2022. TECHNIQUE: Real-time scanning was performed of the fetus, with image documentation and biometric measurements. COMPARISON: 02/02/22. FINDINGS: General: A single living intrauterine gestation is present. Presentation: Breech Placenta: Placental position is posterior, without previa. Amniotic fluid index: 13.3 cm, within normal limits for gestational age. Deepest fluid pocket: 4.1 cm. heart rate: 171 beats per minute. Maternal cervical canal: 5 cm long; normal length is 2.5 cm or more. biometrics: Biparietal diameter: 4.3 cm, 18 weeks 6 days Head circumference: 16.8 cm, 19 weeks 3 days Abdominal circumference: 16.1 cm, 21 weeks 2 days Femur length: 3.4 cm, 20 weeks 4 days Estimated gestational age from initial scan: 20 weeks 0 days Composite gestational age from present scan: 19 weeks 5 days Estimated weight and percentile: 371 g, 83rd percentile Measurement variability in biometric dating: +/- 10 days from 12-20 weeks gestation, +/- 2 weeks from 20-30 weeks gestation, +/- 3 weeks at 30 weeks gestation or later. Anatomic survey: Neuro: Ventricles are normal at less than 10 mm. Cisterna magna is normal at 3-11 mm. Cerebellum i s normal in size and morphology. Nuchal skin fold: Normal at less than 6 mm between 14 and 20 weeks gestational age. Face: Nose and lips, facial profile are normal. Spine: No evidence for spina bifida. Heart: 4-chambered heart is present, with normal ventricular outflow tracts. Diaphragm: Diaphragm is intact. Stomach: Left-sided stomach is present. Kidneys: No hydronephrosis. Normal is less than 5 mm in 2nd trimester, less than 7 mm in 3rd trimester. Cord: 3 vessel cord has orthotopic insertion. Bladder: Normal in size. Extremities: All 4 extremities are visualized. IMPRESSION: 1. Single living intrauterine patency demonstrating appropriate interval growth with estimated weight at the 83rd percentile. 2. anatomic survey within normal limits. Reviewed by: Tre Souza MD on 05/05/2022 3:22 AM PDT Approved by: Tre Souza MD on 05/05/2022 3:22 AM PDT Station ID: [id number]
== END 2022-05-04 15:45 | disposition home or self-care (01) ==
LOC: DI 15:44
PROVIDERS: ATTEND Obstetrics & Gynecology
DX: Z34.82 Encounter for supervision of other normal pregnancy, second trimester (principal); Z36.89 Encounter for other specified antenatal screening

== ENCOUNTER 2022-06-20 12:54 | Outpatient (CLI) | payer OTHER ==
[2022-06-20 18:04] LABS: HGB - HEMOGLOBIN 11.5 g/dL (12.0-16.0); MEAN CORPUSCULAR HEMOGLOBIN 29.3 pg (27.0-31.0); MEAN CORPUSCULAR HGB CONC 32.9 g/dL (32.0-36.0); MEAN CORPUSCULAR VOLUME 89.3 fL (81.0-99.0); MEAN PLATELET VOLUME 9.6 fL (7.9-10.8); RED BLOOD COUNT 3.92 10^6/uL (4.20-5.40); RED CELL DISTRIBUTION WIDTH 13.1 % (12.0-15.0); WHITE BLOOD COUNT 12.2 x10^3/uL (4.8-10.8)
== END 2022-06-20 12:55 | disposition home or self-care (01) ==
LOC: LAB.N 12:54
PROVIDERS: ATTEND Obstetrics & Gynecology
DX: Z34.80 Encounter for supervision of other normal pregnancy, unspecified trimester (principal); Z67.91 Unspecified blood type, Rh negative
CPT/HCPCS: 36415; 85027; 86850

== ENCOUNTER 2022-07-09 15:45 | Outpatient (CLI) | payer OTHER ==
[2022-07-10 23:07] LABS: BACTERIAL VAGINOSIS DNA NEGATIVE (NEGATIVE); CANDIDA GLABRATA DNA NEGATIVE (NEGATIVE); CANDIDA GROUP DNA POSITIVE (NEGATIVE); CANDIDA KRUSEI DNA NEGATIVE (NEGATIVE); TRICHOMONAS VAGINALIS DNA NEGATIVE (NEGATIVE)
== END 2022-07-09 23:59 | disposition home or self-care (01) ==
LOC: LAB.WC 15:45
PROVIDERS: ATTEND Obstetrics & Gynecology
DX: N89.8 Other specified noninflammatory disorders of vagina (principal)
CPT/HCPCS: 81514

== ENCOUNTER 2022-08-11 10:57 | Outpatient (CLI) | payer OTHER ==
[2022-08-11 11:14] VITALS: BP 105/68
--- NOTE | 2022-08-11 11:44 | PROCEDURE REPORT ---
- HPI Diagnosis/Indication for NST: Gestational Diabetes Current EDU 09/18/22 Gestation 34 Weeks and 4 Days 4 Para 1 Vital Signs Temperature 98.1 F 08/11/22 11:13 Heart Rate 100 08/11/22 11:13 Respiratory Rate 18 08/11/22 11:13 Blood Pressure 105/68 08/11/22 11:13 O2 Saturation 99 08/11/22 11:13 Temperature 98.1 F 08/11/22 11:15 Heart Rate 100 08/11/22 11:15 Respiratory Rate 18 08/11/22 11:15 Blood Pressure 105/68 08/11/22 11:15 O2 Saturation 99 08/11/22 11:13 If not protocol: Oxygen Flow, liters/minute - NST Procedure NST Procedure Start Date 08/11/22 Start Time 11:08 Stop Time 14:30 Vibroacoustic Stimulation Used No Patient States Movement Yes - Results and Plan Plan: Patient is a 27-year-old -0-2-1 at 34 weeks with gestation here for scheduled NST. NST Performed 08/11/2022 NST Read on 08/11/2022 FHT: 140 bpm baseline, moderate variability, accelerations present, no decelerations. Reactive NST [place]: Quiescent Diagnosis 34 weeks gestation Gestational diabetes Continue with twice weekly NST.
== END 2022-08-11 11:59 | disposition home or self-care (01) ==
LOC: WFO 10:57 → FBP 10:59 → WFO 11:59
PROVIDERS: ATTEND Obstetrics & Gynecology
DX: O24.419 Gestational diabetes mellitus in pregnancy, unspecified control (principal); Z3A.34 34 weeks gestation of pregnancy
CPT/HCPCS: 59025

== ENCOUNTER 2022-08-14 09:55 | Outpatient (CLI) | payer OTHER ==
--- NOTE | 2022-08-14 16:14 | Ultrasound Report ---
PROCEDURE: OB Biophysical Profile INDICATIONS: GESTATIONAL DIABETES OUTSIDE/PRIOR DATING DATA: Last menstrual period (LMP): 12/12/2021. LMP-based estimated date of delivery (GLORIA): 09/18/2022. First dating scan (date and location): 02/02/2022. Estimated date of delivery (GLORIA) from first dating scan: 09/21/2022. The below data below was generated using the working [place]ORIA of 09/21/2022 TECHNIQUE: Real-time scanning was performed of the fetus, with image documentation and biometric gurwinder surements. Biophysical profile was also obtained. COMPARISON: OB ultrasound, 05/04/2022. FINDINGS: General: A single living intrauterine gestation is present. Presentation: Cephalic Placenta: Placental position is posterior, without previa. Amniotic fluid index: 9.2 cm; largest pocket 3.0 cm. heart rate: 147 beats per minute. Maternal cervical canal: Not visualized. biometrics: Estimated gestational age from initial scan: 34 weeks 4 days. Biophysical profile: Tone: 2 points. Movement: 2 points. Respiration: 2 points. Largest pocket of fluid: 2 points. Umbilical artery Doppler: S/D 2.4-2.7 Note is made of nuchal cord. IMPRESSION: 1. A single living IUP redemonstrated. 2. biophysical profile score 8 out of 8. 3. Nuchal cord. Reviewed by: Stanton Healy MD on 08/14/2022 3:12 PM AKST Approved by: Stanton Healy MD on 08/14/2022 3:12 PM AKST Station ID: [id number]
== END 2022-08-14 09:56 | disposition home or self-care (01) ==
LOC: DI 09:55
PROVIDERS: ATTEND Obstetrics & Gynecology
DX: O24.419 Gestational diabetes mellitus in pregnancy, unspecified control (principal); Z3A.34 34 weeks gestation of pregnancy

== ENCOUNTER 2022-08-18 11:05 | Outpatient (CLI) | payer OTHER ==
[2022-08-18 11:20] VITALS: BP 118/71
--- NOTE | 2022-08-18 11:40 | PROCEDURE REPORT ---
- HPI Diagnosis/Indication for NST: Gestational Diabetes Vital Signs Temperature 98.4 F 08/18/22 11:17 Heart Rate 92 08/18/22 11:17 Respiratory Rate 14 08/18/22 11:17 Blood Pressure 118/71 08/18/22 11:17 Temperature 98.4 F 08/18/22 11:17 Heart Rate 92 08/18/22 11:17 Respiratory Rate 14 08/18/22 11:17 Blood Pressure 118/71 08/18/22 11:17 O2 Saturation If not protocol: Oxygen Flow, liters/minute - NST Procedure NST Procedure Start Time 10:50 Stop Time 11:20 EFM: 150s, moderate variability, positive 15x15 accelerations, no decelerations [place]: no contractions NST reactive/Cat 1 Performed and read 08/18/22 - Results and Plan Plan: 27yo at 35.4w presenting for scheduled NST for GDMA2 - NST reactive - Follow up as scheduled
== END 2022-08-18 11:50 | disposition home or self-care (01) ==
LOC: WFO 11:05 → FBP 11:07 → WFO 11:50
PROVIDERS: ATTEND Obstetrics & Gynecology
DX: O24.414 Gestational diabetes mellitus in pregnancy, insulin controlled (principal); Z3A.35 35 weeks gestation of pregnancy
CPT/HCPCS: 59025

== ENCOUNTER 2022-08-21 18:01 | Outpatient (CLI) | payer OTHER ==
[2022-08-21 18:15] VITALS: BP 115/72
--- NOTE | 2022-08-28 08:48 | PROCEDURE REPORT ---
- HPI Diagnosis/Indication for NST: Gestational Diabetes Current EDU 09/18/22 Gestation 36 Weeks and 0 Days 4 Para 1 Vital Signs Temperature 98.1 F 08/21/22 18:10 Heart Rate 100 08/21/22 18:10 Respiratory Rate 14 08/21/22 18:10 Blood Pressure 115/72 08/21/22 18:10 Temperature 98.1 F 08/21/22 19:03 Heart Rate 100 08/21/22 19:03 Respiratory Rate 14 08/21/22 19:03 Blood Pressure 115/72 08/21/22 19:03 O2 Saturation If not protocol: Oxygen Flow, liters/minute - NST Procedure NST Procedure Start Date 08/21/22 Start Time 18:18 Stop Time 18:43 Vibroacoustic Stimulation Used No Patient States Movement Yes - Results and Plan Plan: Patient is a 27-year-old -0-2-1 at 36 weeks 0 days gestation here for cristhian eduled NST. NST Performed 08/21/2022 NST Read 08/21/2022 FHT: 135 bpm baseline, moderate variability, accelerations present, no decelerations. Reactive NST [place]: Quiescent Diagnosis 36 weeks gestation Gestational diabetes Continue with twice weekly NST.
== END 2022-08-21 18:58 | disposition home or self-care (01) ==
LOC: WFO 18:01 → FBP 18:04 → WFO 18:58
PROVIDERS: ATTEND Obstetrics & Gynecology
DX: O24.414 Gestational diabetes mellitus in pregnancy, insulin controlled (principal); Z3A.36 36 weeks gestation of pregnancy
CPT/HCPCS: 59025; 99213

== ENCOUNTER 2022-08-21 19:00 | Outpatient (CLI) | payer OTHER ==
--- NOTE | 2022-08-22 10:39 | Ultrasound Report ---
PROCEDURE: OB F/U or Repeat INDICATIONS: GESTATIONAL DIABETES OUTSIDE/PRIOR DATING DATA: Last menstrual period (LMP): 12/12/2021. LMP-based estimated date of delivery (GLORIA): 09/18/2022. First dating scan (date and location): 02/02/2022. Estimated date of delivery (GLORIA) from first dating scan: 09/21/2022. The below data below was generated using the ultrasound GLORIA of 09/21/2022 TECHNIQUE: Real-time scanning was performed of the fetus, with image documentation and biometric measurements. Endovaginal scanning: Not performed COMPARISON: 08/24/2022 and several prior studies. FINDINGS: General: A single living intrauterine gestation is present. Presentation: Vertex Placenta: Placental position is posterior, without previa. Amniotic fluid index: 11.4 cm, largest pocket is 5.8 cm. Normal for gestational age. heart rate: 157 beats per minute. Maternal cervical canal: Grossly closed, not well seen. normal length is 2.5 cm or more. biometrics: Biparietal diameter: 8.7 cm, 35 weeks, 1 day Head circumference: 32 cm 36 weeks, 0 days Abdominal circumference: 31 cm, 34 weeks, 6 days Femur length: 6.9 cm, 35 weeks, 4 days Estimated gestational age from initial scan: 35 weeks, 4 days Composite gestational age from present scan: 35 weeks, 3 days Estimated weight and percentile: 2615 g, 38th percentile Measurement variability in biometric dating: +/- 10 days from 12-20 weeks gestation, +/- 2 weeks from 20-30 weeks gestation, +/- 3 weeks at 30 weeks gestation or more. Other: Incidental note made of nuchal cord. IMPRESSION: 1. Single living intrauterine with appropriate growth since the prior study. 2. Estimated weight at the 38th percentile. 3. Normal amniotic fluid volume. Reviewed by: Janie Vera MD on 08/22/2022 9:38 AM [facility] Approved by: Janie Vera MD on 08/22/2022 9:38 AM [facility] Station ID: [id number]
--- NOTE | 2022-08-22 12:33 | PROCEDURE REPORT ---
- NST Procedure NST Procedure Start Time 18:18 Stop Time 18:43 Baseline: 120 Moderate [id number] variability Present acceleration Absent Deceleration Interpretation: Reactive Plan: No changes, continue to follow the schedule plan - Results and Plan Findings/Impression: Reactive Plan: Followed the scheduled plan
== END 2022-08-21 19:01 | disposition home or self-care (01) ==
LOC: DI 19:00
PROVIDERS: ATTEND Obstetrics & Gynecology
DX: O24.414 Gestational diabetes mellitus in pregnancy, insulin controlled (principal); Z3A.35 35 weeks gestation of pregnancy

== ENCOUNTER 2022-08-22 08:00 | Outpatient (CLI) | payer OTHER | END 2022-08-22 23:59 | disposition home or self-care (01) | LOC: LAB.WC 08:00 | PROVIDERS: ATTEND Obstetrics & Gynecology | DX: Z36.85 Encounter for antenatal screening for Streptococcus B (principal) | CPT/HCPCS: 87797 ==

== ENCOUNTER 2022-08-25 11:04 | Outpatient (CLI) | payer OTHER ==
[2022-08-25 11:20] VITALS: BP 119/75
--- NOTE | 2022-08-27 11:09 | PROCEDURE REPORT ---
- HPI Diagnosis/Indication for NST: Gestational Diabetes Current EDU 09/18/22 Gestation 36 Weeks and 4 Days 4 Para 1 Vital Signs Temperature 98.1 F 08/25/22 11:17 Heart Rate 97 08/25/22 11:17 Respiratory Rate 16 08/25/22 11:17 Blood Pressure 119/75 08/25/22 11:17 O2 Saturation 99 08/25/22 11:17 Temperature 98.1 F 08/25/22 11:22 Heart Rate 97 08/25/22 11:17 Respiratory Rate 16 08/25/22 11:17 Blood Pressure 119/75 08/25/22 11:17 O2 Saturation 99 08/25/22 11:17 If not protocol: Oxygen Flow, liters/minute - NST Procedure NST Procedure Start Date 08/25/22 Start Time 11:11 Stop Time 11:40 Vibroacoustic Stimulation Used No Patient States Movement Yes NST Procedu EFM: 140s, moderate variability, positive 15x15 accelerations, no decelerations [place]: no contractions NST reactive/Cat 1 Performed and read 08/25/22 - Results and Plan Plan: 27yo presenting for scheduled NST for GDMA2 - NST reactive - Follow up as scheduled - Results and Plan Findings/Impression: reactive Plan: as scheduled
== END 2022-08-25 11:46 | disposition home or self-care (01) ==
LOC: WFO 11:04 → FBP 11:06 → WFO 11:46
PROVIDERS: ATTEND Obstetrics & Gynecology
DX: O24.419 Gestational diabetes mellitus in pregnancy, unspecified control (principal); Z3A.36 36 weeks gestation of pregnancy
CPT/HCPCS: 59025

== ENCOUNTER 2022-08-28 17:53 | Outpatient (CLI) | payer OTHER ==
[2022-08-28 18:15] VITALS: BP 115/74
--- NOTE | 2022-08-28 21:13 | PROCEDURE REPORT ---
- HPI Current EDU 09/18/22 Gestation 37 Weeks and 0 Days 4 Para 1 Vital Signs Temperature 98.2 F 08/28/22 18:13 Heart Rate 93 08/28/22 18:13 Respiratory Rate 16 08/28/22 18:13 Blood Pressure 115/74 08/28/22 18:13 Temperature 98.2 F 08/28/22 18:13 Heart Rate 93 08/28/22 18:13 Respiratory Rate 16 08/28/22 18:13 Blood Pressure 115/74 08/28/22 18:13 O2 Saturation If not protocol: Oxygen Flow, liters/minute - NST Procedure NST Procedure Start Date 08/28/22 Start Time 18:13 Stop Time 18:46 Vibroacoustic Stimulation Used No Patient States Movement Yes - Results and Plan Plan: Patient is a 27-year-old -0-2-1 at 37 weeks gestation here for scheduled NST. NST Performed 08/28/2022 NST Read 08/28/2022 FHT: 145 bpm baseline, moderate variability, accelerations present, no decelerations. Reactive NST [place]: Every 5 minutes approximately Diagnosis 37 weeks gestation Gestational diabetes Cervix 3 cm dilated however patient does not feel regular contractions. Will return if these become more frequent. Continue with twice weekly NST.
--- NOTE | 2022-08-29 14:03 | Ultrasound Report ---
PROCEDURE: OB Biophysical Profile INDICATIONS: GDM, weekly BPP OUTSIDE/PRIOR DATING DATA: Last menstrual period (LMP): 12/12/2021. LMP-based estimated date of delivery (GLORIA): 09/18/2022. First dating scan (date and location): 02/02/2022. Estimated date of delivery (GLORIA) from first dating scan: 09/21/2022. The below data below was generated using the ultrasound GLORIA of 09/21/2022 TECHNIQUE: Real-time scanning was performed of the fetus, with image documentation and biometric gurwinder surements. Biophysical profile was also obtained. Endovaginal scanning: Not performed COMPARISON: Several priors, the most recent 08/21/2022 FINDINGS: General: A single living intrauterine gestation is present. Presentation: Vertex Placenta: Placental position is posterior, without previa. Amniotic fluid index: 11.2 cm, largest pocket is 4.1 cm heart rate: 131 beats per minute. Maternal cervical canal: Not seen due to head shadowing. Biophysical profile: Tone: 2 points. Movement: 2 points. Respiration: 0 points. Largest pocket of fluid: 2 points. Umbilical artery Doppler: Ranging from 2.48 to 3.0 IMPRESSION: 1. Single living intrauterine . 2. Biophysical profile score 6 out of 8. 3. Normal amniotic fluid volume. 4. Normal umbilical artery Dopplers. 5. Preliminary results given by the relay shop supervisor to the ordering provider immediately following the st udy. Reviewed by: Janie Vera MD on 08/29/2022 2:02 PM PST Approved by: Janie Vera MD on 08/29/2022 2:02 PM PST Station ID: [id number]
== END 2022-08-28 19:15 | disposition home or self-care (01) ==
LOC: DI 17:53 → FBP 18:05 → DI 19:15
PROVIDERS: ATTEND Obstetrics & Gynecology
DX: O24.414 Gestational diabetes mellitus in pregnancy, insulin controlled (principal); Z3A.37 37 weeks gestation of pregnancy
CPT/HCPCS: 59025; 99213

== ENCOUNTER 2022-08-29 13:20 | Outpatient (CLI) | payer OTHER ==
[2022-08-29 13:37] VITALS: BP 108/75
--- NOTE | 2022-08-29 16:15 | PROVIDER PROGRESS NOTE ---
- HPI Current : Current EDU 09/18/22 Gestation 37 Weeks and 1 Days 4 Para 2 Vital Signs Temperature 97.9 F 08/29/22 13:31 Heart Rate 94 08/29/22 13:31 Respiratory Rate 16 08/29/22 13:31 Blood Pressure 108/75 08/29/22 13:31 Temperature 97.9 F 08/29/22 13:31 Heart Rate 94 08/29/22 13:31 Respiratory Rate 16 08/29/22 13:31 Blood Pressure 108/75 08/29/22 13:31 O2 Saturation If not protocol: Oxygen Flow, liters/minute - Procedures OB Procedure Performed: NST Diagnosis/Indication for NST: Gestational Diabetes NST Procedure: NST Procedure Start Date 08/29/22 Start Time 13:29 Stop Time 14:10 Vibroacoustic Stimulation Used No Patient States Movement Yes Service Date of procedure: 08/29/22 (08/29/22) - Plan Plan: Patient is a 27-year-old -0-2-1 at 37 weeks 1 day gestation presenting to triage for contractions. She has good movement, no leaking, no vaginal bleeding. She denies headache, right upper quadrant pain, changes in vision. Physical exam Constitutional: alert, no acute distress, well hydrated, well developed, well nourished, appropriate dress. Cardiovascular: Regular rate and rhythm. Respiratory: no respiratory distress. Abdomen: nondistended, nontender, no guarding. Psych: affect and mood appropriate, normal interaction, good eye contact. FHT: 135 bpm baseline, moderate variability, accelerations present, no decelerations. Reactive NST [place]: Irregular SVE: Assessment and plan 19-year-old -0-2-1 at 37 weeks 1 day gestation Contractions not leading to labor. -Patients observed in triage withou cervical change. No regular contractions. Discussed returning for noticeably different contractions causing more pain and more regularity. Gestational diabetes -Glucose logs better today. We will continue to increase working on diet and exercise. Follow-up in clinic next week.
== END 2022-08-29 16:00 | disposition home or self-care (01) ==
LOC: WFO 13:20 → FBP 13:23 → WFO 16:00
PROVIDERS: ATTEND Obstetrics & Gynecology
DX: O47.1 False labor at or after 37 completed weeks of gestation (principal); O24.419 Gestational diabetes mellitus in pregnancy, unspecified control; Z3A.37 37 weeks gestation of pregnancy
CPT/HCPCS: 59025; 99214

== ENCOUNTER 2022-09-04 17:54 | Outpatient (CLI) | payer OTHER ==
[2022-09-04 18:10] VITALS: BP 105/65
--- NOTE | 2022-09-04 21:37 | PROCEDURE REPORT ---
- HPI Diagnosis/Indication for NST: Gestational Diabetes Current EDU 09/18/22 Gestation 38 Weeks and 0 Days 4 Para 1 Vital Signs Temperature 97.7 F 09/04/22 18:03 Heart Rate 81 09/04/22 18:03 Respiratory Rate 18 09/04/22 18:03 Blood Pressure 105/65 09/04/22 18:03 Temperature 98.2 F 09/04/22 18:05 Heart Rate 87 09/04/22 18:05 Respiratory Rate 18 09/04/22 18:05 Blood Pressure 105/65 09/04/22 18:05 O2 Saturation If not protocol: Oxygen Flow, liters/minute - NST Procedure NST Procedure Start Date 09/04/22 Start Time 18:05 Stop Time 18:30 Vibroacoustic Stimulation Used No Patient States Movement Yes EFM: 130s, moderate variability, positive 15x15 accelerations, no decelerations [place]: no contractions NST reactive/Cat 1 Performed and read 09/04/22 - Results and Plan Plan: 27yo at 38w presents for scheduled NST for GDMA2 - NST reactive - Follow up 3d as scheduled
== END 2022-09-04 18:35 | disposition home or self-care (01) ==
LOC: WFO 17:54 → FBP 17:56 → WFO 18:35
PROVIDERS: ATTEND Obstetrics & Gynecology
DX: O24.414 Gestational diabetes mellitus in pregnancy, insulin controlled (principal); Z3A.38 38 weeks gestation of pregnancy
CPT/HCPCS: 59025; 99213

== ENCOUNTER 2022-09-04 18:46 | Outpatient (CLI) | payer OTHER ==
--- NOTE | 2022-09-05 10:48 | Ultrasound Report ---
PROCEDURE: OB Biophysical Profile INDICATIONS: GESTATIONAL DIABETES OUTSIDE/PRIOR DATING DATA: Last menstrual period (LMP): 12/12/2021. LMP-based estimated date of delivery (GLORIA): 09/18/2022. First dating scan (date and location): 02/02/2022. Estimated date of delivery (GLORIA) from first dating scan: 09/21/2022. The below data below was generated using the working GLORIA of 09/21/2022 TECHNIQUE: Real-time scanning was performed of the fetus, with image documentation and biometric gurwinder surements. Biophysical profile was also obtained. Endovaginal scanning: Not indicated COMPARISON: 08/28/2022, 08/21/2022, 08/14/2022 and 05/04/2022 FINDINGS: General: A single living intrauterine gestation is present. Presentation: Vertex Placenta: Placental position is posterior, without previa. Amniotic fluid index: 9.9 cm, normal for gestational age. heart rate: 141 beats per minute. Maternal cervical canal: Not evaluated Biophysical profile: Tone: 2 points. Movement: 2 points. Respiration: 2 points. Largest pocket of fluid: 2 points. Umbilical artery Doppler: 2.5, 2.7 and 3.1. IMPRESSION: 1. Single live intrauterine gestation with fetus in vertex presentation. Normal amount of amniotic fl uid. heart rate is 141 bpm. 2. biophysical profile score is 8 out of 8. 3. Normal umbilical artery S/D ratio. Reviewed by: Wesley Johnson MD on 09/05/2022 10:46 AM PST Approved by: Wesley Johnson MD on 09/05/2022 10:46 AM PST Station ID: [id number]
== END 2022-09-04 18:47 | disposition home or self-care (01) ==
LOC: DI 18:46
PROVIDERS: ATTEND Obstetrics & Gynecology
DX: O24.414 Gestational diabetes mellitus in pregnancy, insulin controlled (principal)

== ENCOUNTER 2022-09-09 20:48 | Outpatient (CLI) | payer OTHER ==
[2022-09-09 21:15] VITALS: BP 106/70
--- NOTE | 2022-09-11 16:17 | PROCEDURE REPORT ---
- HPI Diagnosis/Indication for NST: Gestational Diabetes Current EDU 09/18/22 Gestation 38 Weeks and 5 Days 4 Para 1 Vital Signs Temperature 98.1 F 09/09/22 21:09 Heart Rate 96 09/09/22 21:09 Respiratory Rate 18 09/09/22 21:09 Blood Pressure 106/70 09/09/22 21:09 O2 Saturation 99 09/09/22 21:09 Temperature 98.1 F 09/09/22 21:10 Heart Rate 82 09/09/22 21:10 Respiratory Rate 18 09/09/22 21:10 Blood Pressure 106/70 09/09/22 21:10 O2 Saturation 99 09/09/22 21:09 If not protocol: Oxygen Flow, liters/minute - NST Procedure NST Procedure Start Date 09/09/22 Start Time 21:02 Stop Time 21:42 Vibroacoustic Stimulation Used No Patient States Movement Yes: But less movement today, but still active - Results and Plan Plan: Patient is a 27-year-old -0-2-1 at 38 weeks 5 days gestation here for labor check in the setting of gestational diabetes. NST Performed 09/09/2022 NST Read 09/09/2022 FHT: 115 bpm baseline, moderate variability, accelerations present, no decelerations. Reactive NST [place]: 2 to 8 minutes Diagnosis 38 weeks gestation Gestational diabetes Continue with twice weekly NST.
== END 2022-09-09 21:45 | disposition home or self-care (01) ==
LOC: WFO 20:48 → FBP 20:51 → WFO 21:45
PROVIDERS: ATTEND Obstetrics & Gynecology
DX: O24.419 Gestational diabetes mellitus in pregnancy, unspecified control (principal); Z3A.38 38 weeks gestation of pregnancy
CPT/HCPCS: 59025; 99214

== ENCOUNTER 2022-09-11 07:13 | Inpatient (IN) | payer OTHER ==
[2022-09-11] MEDS ORDERED: OXYTOCIN/SODIUM CHLORIDE 500 ML IV ONE (08:45)
[2022-09-11] MEDS ORDERED: NIFEdipine 10 MG CAPSULE PO PRN (08:49)
[2022-09-11] MEDS ORDERED: SODIUM CHLORIDE FLUSH 0.9% 10 ML SYRINGE IVP PRN (08:49)
[2022-09-11] MEDS ORDERED: LABETALOL 20 MG/4 ML SYRINGE IVP PRN ×3 (08:49)
[2022-09-11] MEDS ORDERED: CARBOPROST TROMETHAMINE 250 MCG/ML AMP IM PRN (08:49)
[2022-09-11] MEDS ORDERED: miSOPROStoL 200 MCG TABLET PR PRN (08:49)
[2022-09-11] MEDS ORDERED: OXYTOCIN 10 UNIT/ML VIAL IM PRN (08:49)
[2022-09-11] MEDS ORDERED: miSOPROStoL 200 MCG TABLET BC PRN (08:49)
[2022-09-11] MEDS ORDERED: hydrALAZINE INJ 20 MG/ML VIAL IVP PRN ×2 (08:49)
[2022-09-11] MEDS ORDERED: OXYTOCIN/SODIUM CHLORIDE 500 ML IV PRN (08:49)
[2022-09-11] MEDS ORDERED: TRANEXAMIC ACID IN NACL 1,000 MG/100 ML BAG IV PRN (08:49)
[2022-09-11] MEDS ORDERED: lidocaine 1% 20 ML MDV ID PRN (08:49)
[2022-09-11] MEDS ORDERED: fentaNYL 100 MCG/2 ML VIAL IVP PRN (08:49)
[2022-09-11] MEDS ORDERED: TERBUTALINE 1 MG/ML VIAL SUBQ PRN (08:49)
[2022-09-11] MEDS ORDERED: METHYLERGONOVINE 0.2 MG/ML VIAL IM PRN (08:49)
[2022-09-11] MEDS ORDERED: LACTATED RINGERS 1,000 ML ONE (08:53)
[2022-09-11] MEDS ORDERED: OXYTOCIN/SODIUM CHLORIDE 500 ML IV SCH (09:00)
[2022-09-11] MEDS ORDERED: LACTATED RINGERS 1,000 ML IV SCH ×2 (09:00→22:00)
[2022-09-11] MEDS ORDERED: SODIUM CHLORIDE FLUSH 0.9% 10 ML SYRINGE IVP SCH (09:00)
[2022-09-11 09:28] LABS: BASOPHILS % (AUTO) 0.3 %; EOSINOPHILS # (AUTO) 0.1 10^3/uL (0.0-0.7); EOSINOPHILS % (AUTO) 0.6 %; HCT - HEMATOCRIT 34.9 % (37.0-47.0); HGB - HEMOGLOBIN 11.6 g/dL (12.0-16.0); LYMPHOCYTES # (AUTO) 1.4 10^3/uL (1.5-3.5); LYMPHOCYTES % (AUTO) 12.8 %; MEAN CORPUSCULAR HGB CONC 33.2 g/dL (32.0-36.0); MEAN CORPUSCULAR VOLUME 87.3 fL (81.0-99.0); MEAN PLATELET VOLUME 8.9 fL (7.9-10.8); MONOCYTES # (AUTO) 0.6 10^3/uL (0.0-1.0); MONOCYTES % (AUTO) 5.1 %; NEUTROPHILS # (AUTO) 8.8 10^3/uL (1.5-6.6); PLT - PLATELET COUNT 293 10^3/uL (130-450); WHITE BLOOD COUNT 10.8 x10^3/uL (4.8-10.8)
--- NOTE | 2022-09-11 09:33 | HISTORY & PHYSICAL EXAMINATION ---
Admit History - Visit Reason Visit Reason: Other (Scheduled IOL for GDMA1) - : 4 Parity: 1 Care: positive: [facility] Risk/History: positive: Gestational diabetes, Labor induction, Labor augmentation Complications This : positive: Gestational diabetes Smoking Status: Never smoker - Mother's Labs Mother's Blood Type: positive: A Mother's RH: positive: Negative GBS: positive: Group B Step Negative Rubella Status: positive: Equivocal - Other Maternal History Other Maternal History: Med: GDM, RH NEG Surg: right salpingectomy due to ectopic Social: , denies srikanth Fam: noncontributory Meds/Allgy - Home Medications Home Medications: Ambulatory Orders Medication Instructions Recorded Confirmed Ferrous Sulfate 325 mg PO DAILY 07/13/20 07/31/22 Pnv No.95/Ferrous Fum/Folic AC 1 each PO DAILY 07/13/20 07/31/22 [ Caplet] Metformin HCl [Metformin ER 500 mg PO HS 07/31/22 07/31/22 Osmotic] - Allergies Allergies/Adverse Reactions: Allergies Allergy/AdvReac Type Severity Reaction Status Date / Time No Known Drug Allergies Allergy Verified 01/14/22 13:34 Review of Systems - All Other Systems All Other Systems: reports: Reviewed and negative Physical - Abdominal Exam Vital Signs: Temp Pulse Resp BP Pulse Ox O2 Flow Rate 97.9 F 103 H 16 110/75 09/11/22 08:19 09/11/22 08:19 09/11/22 08:19 09/11/22 08:19 Contraction Frequency (min/apart): none - Monitoring Heart Rate Baseline: 140 Strip Review: positive: Category I - Presentation Presentation: positive: Vertex (EFW 3400g Placenta posterior) - Vaginal Exam Membranes: positive: Membranes intact Dilation (in cm): 3 Effacement (%): 50 Station: positive: -2 Cervical Position: positive: Midposition - Speculum Exam Speculum Exam Performed: positive: No Plan for Labor - Plan For Labor I expect patient to be DC'd or transferred within 96 hours.: Yes Plan for Labor: 27yo at 39w by LMP consistent with 7w US presenting for IOL for GDMA1 - Admit, plan for Pitocin IOL now - Rubella-NI, GBS NEG - Anticipate today
[2022-09-11] MEDS ORDERED: DEXTROSE GEL 37.5 GM TUBE ONE (09:41)
--- NOTE | 2022-09-11 15:50 | PROVIDER PROGRESS NOTE ---
Labor Progress Note - Uterine Monitoring Uterine Monitoring Mode: positive: External toco Contraction Intensity: positive: Mild to moderate Uterine Resting Tone: positive: Soft - Monitoring Monitor Mode: positive: External ultrasound Heart Rate Baseline: 130 Heart Rate Variability: positive: Moderate (6-25 bmp) Accelerations: positive: Present, 15x15 Decelerations: positive: None Strip Review: positive: Category I - Vaginal Exam Dilation (in cm): 4 Effacement (%): 100 Station: -1 Cervical Position: Midposition - Labor Progress Note Labor Progress Note/Additional Text: 27yo at 39w admitted for IOL for GDMA1 - AROM 1530, clear - Anticipate
[2022-09-11] MEDS ORDERED: BUPIVACAINE 0.25% PF 10 ML VIAL ONE (19:10)
[2022-09-11] MEDS ORDERED: ROPIVACAINE 0.2% 200 MG/100 ML BAG EP ONE (19:10)
[2022-09-11] MEDS ORDERED: ePHEDrine 50 MG/ML VIAL IVP PRN (20:03)
[2022-09-11] MEDS ORDERED: diphenhydrAMINE INJ 50 MG/ML VIAL IVP PRN (20:03)
[2022-09-11] MEDS ORDERED: NALOXONE 0.4 MG/ML VIAL IVP PRN (20:03)
[2022-09-11] MEDS ORDERED: METOCLOPRAMIDE 10 MG/2 ML VIAL IVP PRN (20:03)
[2022-09-11] MEDS ORDERED: ROPIVACAINE 0.2% 200 MG/100 ML BAG EP PRN (20:03)
[2022-09-11] MEDS ORDERED: NALBUPHINE 10 MG/ML AMP IVP PRN (20:03)
[2022-09-11] MEDS ORDERED: ONDANSETRON 4 MG/2 ML VIAL IVP PRN (20:03)
--- NOTE | 2022-09-11 20:09 | ANESTHESIA ---
Pre-Anesthesia VS, & Labs - Diagnosis labor induction - Procedure labor epidural Vital Signs: Temp Pulse Resp BP Pulse Ox O2 Flow Rate 36.6 C 103 H 16 110/75 09/11/22 08:19 09/11/22 08:19 09/11/22 08:19 09/11/22 08:19 Height: 5 ft 7 in Weight (kg): 95.254 kg Body Mass Index: 32.8 BMI Classification: Obese - NPO Other (clears) - Is Patient ?: Yes - Lab Results Current Lab Results: Laboratory Tests 09/11/22 09:10: WBC 10.8, RBC 4.00 L, Hgb 11.6 L, Hct 34.9 L, MCV 87.3, MCH 29.0, MCHC 33.2, RDW 13.0, Plt Count 293, MPV 8.9, Neut # (Auto) 8.8 H, Lymph # (Auto) 1.4 L, [place] # (Auto) 0.6, Eos # (Auto) 0.1, Baso # (Auto) 0.0, Absolute Nucleated RBC 0.00, Nucleated RBC % 0.0 09/11/22 09:10: Blood Type A NEGATIVE, Antibody Screen NEGATIVE Fish Bones: 09/11/22 09:10 Home Medications and Allergies Active Medications Carboprost Tromethamine (Carboprost Tromethamine 250 Mcg/Ml Amp) 250 mcg IM .ONCE PRN PRN Reason: Hemorrhage Fentanyl (Fentanyl 100 Mcg/2 Ml Vial) 50 mcg IVP Q1H PRN PRN Reason: Severe Pain (score 7-10) Hydralazine HCl (Hydralazine Inj 20 Mg/Ml Vial) 5 - 10 mg IVP Q20M PRN; Protocol PRN Reason: SBP> or= 160 OR DBP> or= 110 Hydralazine HCl (Hydralazine Inj 20 Mg/Ml Vial) 10 mg IVP .ONCE PRN; Protocol PRN Reason: SBP> or= 160 OR DBP> or= 110 Oxytocin/Sodium Chloride (Pitocin/Sodium Chloride) 500 mls @ 999 mls/hr IV PRN PRN; Protocol PRN Reason: POST- HEMORR PREVENTION Tranexamic Acid (Tranexamic 1,000 Mg/100ml-Nacl) 1,000 mg in 100 mls @ 600 mls/hr IV Q30M PRN PRN Reason: EBL >1200mL and within 3hr Lactated Ringer's (Lr) 1,000 mls @ 125 mls/hr IV .Q8H VEENA Last Infusion: 09/11/22 17:30 Dose: 999 mls/hr Oxytocin/Sodium Chloride (Pitocin/Sodium Chloride) 500 mls @ 1 mls/hr IV TITR VEENA; Protocol Last Titration: 09/11/22 18:08 Dose: 6 milliunit/min, 6 mls/hr Labetalol HCl (Labetalol 20 Mg/4 Ml Syringe) 20 - 80 mg IVP Q10M PRN; Protocol PRN Reason: SBP> or= 160 OR DBP> or= 110 Labetalol HCl (Labetalol 20 Mg/4 Ml Syringe) 20 mg IVP .ONCE PRN; Protocol PRN Reason: SBP> or= 160 OR DBP> or= 110 Labetalol HCl (Labetalol 20 Mg/4 Ml Syringe) 20 - 40 mg IVP Q10M PRN; Protocol PRN Reason: SBP> or= 160 OR DBP> or= 110 Lidocaine HCl (Lidocaine 1% 20 Ml Mdv) 20 ml ID .ONCE PRN PRN Reason: PERINEAL REPAIR Stop: 09/14/22 08:49 Methylergonovine Maleate (Methylergonovine 0.2 Mg/Ml Vial) 0.2 mg IM .ONCE PRN PRN Reason: Hemorrhage Misoprostol (Misoprostol 200 Mcg Tablet) 600 mcg BC .ONCE PRN PRN Reason: Hemorrhage Misoprostol (Misoprostol 200 Mcg Tablet) 800 mcg SC .ONCE PRN PRN Reason: Hemorrhage Nifedipine (Nifedipine 10 Mg Capsule) 10 - 20 mg PO Q20M PRN; Protocol PRN Reason: SBP> or= 160 OR DBP> or= 110 Oxytocin (Oxytocin 10 Unit/Ml Vial) 10 unit IM .ONCE PRN PRN Reason: Step One if no IV access. Sodium Chloride (Sodium Chloride Flush 0.9% 10 Ml Syringe) 10 ml IVP PRN PRN PRN Reason: NEEDED PER PROVIDER ORDERS Sodium Chloride (Sodium Chloride Flush 0.9% 10 Ml Syringe) 10 ml IVP Q8H VEENA Terbutaline Sulfate (Terbutaline 1 Mg/Ml Vial) 0.25 mg SUBQ .ONCE PRN PRN Reason: Tachystole Ferrous Sulfate 325 mg PO DAILY 07/13/20 Pnv No.95/Ferrous Fum/Folic AC [ Caplet] 1 each PO DAILY 07/13/20 Metformin HCl [Metformin ER Osmotic] 500 mg PO HS 07/31/22 Allergies/Adverse Reactions: Allergies Allergy/AdvReac Type Severity Reaction Status Date / Time No Known Drug Allergies Allergy Verified 01/14/22 13:34 Anes History & Medical History - Anesthetic History Anesthesia Complications: reports: No previous complications - Medical History Cardiovascular: reports: None Pulmonary: reports: None Gastrointestinal: reports: None Urinary: reports: None Neuro: reports: None Endocrine/Autoimmune: reports: Other (gestational diabetes) Smoking Status: Never smoker - Surgical History Gynecologic: reports: Other (ectopic) - Obstetrical History : 4 Parity: 1 Events: reports: Gestational diabetes, Labor induction, Labor augmentation Complications: reports: Gestational diabetes Exam General: Alert, Oriented x3, Moderate distress Dental: WNL Mouth Opening: Greater than 4 Fingerbreadths Neck Mobility: Normal Mallampati classification: II Respiratory: Lungs clear Cardiovascular: Regular rate Plan Anesthesia Type: Epidural Consent for Procedure(s) Verified and Reviewed: Yes Code Status: Attempt Resuscitation ASA classification: 2-Mild systemic disease Is this case an emergency?: No
[2022-09-11] MEDS ORDERED: HYDROCORTISONE 1% CREAM 28 GM TUBE PR PRN (21:08)
[2022-09-11] MEDS ORDERED: WITCH HAZEL/GLYCERIN 1 PAD TOP PRN (21:08)
[2022-09-11] MEDS ORDERED: MEASLES,MUMPS & RUBELLA VACC 0.5 ML VIAL SUBQ ONE (21:11)
--- NOTE | 2022-09-11 21:15 | DELIVERY NOTE ---
Delivery Note - Labor Labor: positive: Augmented by oxytocin, Induced by oxytocin - Delivery Method Delivery Method: positive: Spontaneous vaginal delivery - Presentation Presentation: positive: Vertex - Nuchal Cord Nuchal Cord: positive: None - Anesthetic Anesthetic Type: - Amniotic Fluid Description Amniotic Fluid Description: positive: Clear - Episiotomy Type Episiotomy Type: positive: None - Laceration Laceration: positive: 1st degree (1cm, not bleeding, not repaired) - Delivery Outcome Delivery Outcome: positive: Livebirth - [place]: positive: Placed in direct skin contact with mother, Bulb syringe, Stimulated, Warmed, [place] used [place] sex: positive: Male - Cord Cord: positive: 3 vessels - Placenta Placenta: positive: Intact, Spontaneous - Estimated Blood Loss Estimated Blood Loss (in cc): 100 - Post Delivery Events Post Delivery Events: positive: No post delivery events - Delivery Comments (Free Text/Narrative) Delivery Comments (Free Text/Narrative): /+2. Maternal pushing with good efforts. Delivered after a few contractions. Head delivered, [place]AR[place]. Body followed with ease. placed on mother's abdomen. Delayed cord clamping. Fundus firm. Placenta delivered spontaneously and intact, 3vvc. Vagina and perineum inspected- small first degree laceration, not bleeding and not repaired. Hemostasis. QBL 100cc. Family bonding at bedside.
[2022-09-12] MEDS: ACETAMINOPHEN 500 MG TABLET PO SCH ×4 (00:47→20:53)
[2022-09-12] MEDS: IBUPROFEN 800 MG TABLET PO SCH ×5 (00:48→20:54)
[2022-09-12] MEDS ORDERED: RHO(D) IMMUNE GLOBULIN 300 MCG SYRINGE IM ONE (08:00)
[2022-09-12] MEDS: DOCUSATE SODIUM 100 MG CAPSULE PO SCH ×2 (09:34→20:54)
--- NOTE | 2022-09-12 12:04 | PROVIDER PROGRESS NOTE ---
Subjective - Prog Note Date Prog Note Date: 09/12/22 Prog Note Time: 08:15 - Subjective Pt reports feeling: Improved Subjective: Subjective Patient reports she is doing well. Lochia appropriate. Denies heavy bleeding. Ambulating. Pelvic and abdominal pain well-controlled. Tolerating oral intake. Diet: Regular. Voiding without difficulty. Passing flatus. Denies BM. Patient is bonding with baby in room Breast feeding going well. Denies feeling lightheaded, dizzy or excessively fatigued. : Declines need Objective General: Alert, oriented, no apparent distress. Cardiovascular: Regular rate. Regular rhythm. Lungs: No increased work of breathing. Abdomen: Uterus firm. Below umbilicus. No guarding or rebound. Extremities: No pain on palpation. No cords palpated. Distal pulses intact. Assessment and Plan day 1. -Routine care -Anticipate discharge tomorrow A1 GDM: Plan for fasting blood glucose tomorrow prior to discharge. Objective - Vital Signs/Intake & Output Vital Signs: Vital Signs x48h Temp Pulse Resp BP Pulse Ox 09/12/22 08:47 98.1 F 16 121/70 100 09/12/22 05:14 98.2 F 82 18 116/71 100 Intake & Output: Intake & Output 09/09/22 09/10/22 09/11/22 09/12/22 23:59 23:59 23:59 23:59 Intake Total 2169.967 Output Total 1100 Balance 2164.967 1100 - Lab Results Fish Bones: 09/11/22 09:10
[2022-09-13] MEDS: IBUPROFEN 800 MG TABLET PO SCH ×2 (03:06→07:46)
--- NOTE | 2022-09-13 07:51 | Discharge Plan ---
Discharge Plan Problem Reviewed?: Yes Disposition: 01 Home, Self Care Condition: Good Diet: Regular Activity Restrictions: Additional Comments Shower Restrictions: No Driving Restrictions: No Instruction Topics: Vaginal After No Smoking: If you smoke, Please STOP! Call for help.
--- NOTE | 2022-09-13 07:53 | DISCHARGE SUMMARY ---
Discharge Summary Admit Date: 09/11/22 Discharge Date: 09/13/22 Discharging Provider: Zack Brody MD Code Status: Attempt Resuscitation Condition at Discharge: Good Discharge Disposition: 01 Home, Self Care - DIAGNOSES Admission Diagnoses: 39 weeks gestation A1 Gestational diabetes Discharge Diagnoses with Status of Each Condition: 39 weeks gestation: Delivered A1 Gestational diabetes: Stable - HPI History of Present Illness: Subjective Patient reports she is doing well. Lochia appropriate. Denies heavy bleeding. Ambulating. Pelvic and abdominal pain well-controlled. Tolerating oral intake. Diet: Regular. Voiding without difficulty. Passing flatus. . Patient is bonding with baby in room Breast feeding going well. Denies feeling lightheaded, dizzy or excessively fatigued. Control: Declines need Objective General: Alert, oriented, no apparent distress. Cardiovascular: Regular rate. Regular rhythm. Lungs: No increased work of breathing. Abdomen: Uterus firm. Below umbilicus. No guarding or rebound. Extremities: No pain on palpation. No cords palpated. Distal pulses intact. - HOSPITAL COURSE Hospital Course: Patient was admitted at 39 weeks gestation for induction of labor secondary to gestational diabetes, managed with diet and exercise. She did have some trouble with her fasting glucose she was admitted and was levels, but never started medication. Started on oxytocin for induction. She had amniotomy performed. She progressed throughout the day and then had an uncomplicated vaginal delivery. was Rh+, and patient received Rh immunoglobulin prophylaxis. course was unremarkable, and she and baby were discharged on day 2. - ALLERGIES Allergies/Adverse Reactions: Allergies Allergy/AdvReac Type Severity Reaction Status Date / Time No Known Drug Allergies Allergy Verified 01/14/22 13:34 - MEDICATIONS Home Medications: Ambulatory Orders Medication Instructions Recorded Confirmed Ferrous Sulfate 325 mg PO DAILY 07/13/20 07/31/22 Pnv No.95/Ferrous Fum/Folic AC 1 each PO DAILY 07/13/20 07/31/22 [ [place]] Metformin HCl [Metformin ER 500 mg PO HS 07/31/22 07/31/22 Osmotic] - LABS Result Diagrams: 09/11/22 09:10 - FOLLOW UP Follow Up: With Zack Brody MD in 1 week - TIME SPENT Time Spent in Discharge (Minutes): 20
[2022-09-13 08:35] VITALS: BP 115/73
--- NOTE | 2022-09-13 14:12 | Labor Flowsheet ---
Labor Flowsheet Datetime Report Generated by CPN: 09/13/2022 14:11 Datetime: 09/13/2022 08:35 Pulse: 82 SpO2 (%): 99 COMMUNICATION LaborFlag: Labor Datetime: 09/13/2022 08:34 VITAL SIGNS NBP Sys/Ligia/Mean (mmHg): 115 : 73 : 83
== END 2022-09-13 12:45 | disposition home or self-care (01) | DRG 807 ==
LOC: WFO 07:13 → FBP 07:14 → WFO 20:49 → FBP 20:49 → WFO 20:50
PROVIDERS: ADMIT Obstetrics & Gynecology; ATTEND Obstetrics & Gynecology
PROC: 10907ZC Drainage of Amniotic Fluid, Therapeutic from Products of Conception, Via Natural or Artificial Opening (ICD-10-PCS; principal; 2022-09-11)
PROC: 10E0XZZ Delivery of Products of Conception, External Approach (ICD-10-PCS; 2022-09-11)
PROC: 3E033VJ Introduction of Other Hormone into Peripheral Vein, Percutaneous Approach (ICD-10-PCS; 2022-09-11)
DX: O24.420 Gestational diabetes mellitus in childbirth, diet controlled (principal); Z37.0 Single live birth; O70.0 First degree perineal laceration during delivery; Z3A.39 39 weeks gestation of pregnancy; O99.214 Obesity complicating childbirth
CPT/HCPCS: 85025; 86850; 86900; 86901; A9270; J7120

== ENCOUNTER 2023-09-21 17:30 | Emergency (ER) | payer OTHER ==
--- NOTE | 2023-09-21 17:43 | ED Physician Documentation ---
History of Present Illness - Stated complaint Stated Complaint: DIZZY - Chief complaint Chief Complaint: General - History obtained from History obtained from: Patient - Additonal information Additional information: Otherwise healthy 28-year-old woman suddenly became dizzy feeling flushed, lightheaded and fatigued about an hour ago. No associated chest pain or trouble breathing. She was sitting down eating dinner when it happened. Not been out of her routine. PD PAST MEDICAL HISTORY - Past Medical History Past Medical History: Yes Cardiovascular: None Respiratory: None Neuro: None Endocrine/Autoimmune: Other GI: None : None - Past Surgical History Past Surgical History: Yes /[employer]: Other - Present Medications Home Medications: Ambulatory Orders Medication Instructions Recorded Confirmed No Known Home Medications 09/21/23 09/21/23 - Allergies Allergies/Adverse Reactions: Allergies Allergy/AdvReac Type Severity Reaction Status Date / Time No Known Drug Allergies Allergy Verified 09/21/23 17:34 - Social History Does the pt smoke?: No Smoking Status: Never smoker Does the pt drink ETOH?: No Does the pt have substance abuse?: No - Immunizations Immunizations are current?: Yes - POLST Patient has POLST: No PD ED PE NORMAL - Vitals Vital signs reviewed: Yes (Mildly hypertensive) - General General: Alert and oriented X 3, No acute distress - HEENT HEENT: PERRL, EOMI - Neck Neck: Supple, no meningeal sign, No bony TTP - Cardiac Cardiac: RRR, No murmur - Respiratory Respiratory: No respiratory distress, Clear bilaterally - Abdomen Abdomen: Non tender - Neuro Neuro: Alert and oriented X 3, plant safety leader 2-12 intact, No motor deficit, No sensory deficit, Normal speech Eye Opening: Spontaneous Motor: Obeys Commands Verbal: Oriented GCS Score: 15 - Psych Psych: Normal mood, Normal affect Results - Vitals Vitals: Vital Signs - 24 hr 09/21/23 09/21/23 17:34 18:12 Temperature 36.8 C Heart Rate 100 Heart Rate [ 124 H Sitting] Heart Rate [ 113 H Standing] Heart Rate [ 100 Supine] Respiratory 16 Rate Blood Pressure 140/84 H Blood Pressure 122/98 H [Sitting] Blood Pressure 116/88 H [Standing] Blood Pressure 117/84 H [Supine] O2 Saturation 100 Oxygen O2 Source Room air - EKG (time done) 1803 EKG releavant findings:: EKG personally interpreted by author of this note. Relevant findings are: Rate: Rate (enter#) (93) Rhythm: NSR [place]: Normal Intervals: Normal NM QRS: Normal Ischemia: Normal ST segments - Labs Labs: Laboratory Tests 09/21/23 09/21/23 09/21/23 17:50 17:50 17:50 WBC 8.9 RBC 4.52 Hgb 12.8 Hct 39.5 MCV 87.4 MCH 28.3 MCHC 32.4 RDW 12.1 Plt Count 299 MPV 8.9 Neut # (Auto) 5.8 Lymph # (Auto) 2.4 [place] # (Auto) 0.5 Eos # (Auto) 0.1 Baso # (Auto) 0.0 Absolute Nucleated RBC 0.00 Nucleated RBC % 0.0 Sodium 138 Potassium 4.3 Chloride 105 Carbon Dioxide 27 Anion Gap 6.0 BUN 15 Creatinine 0.8 Estimated GFR (MDRD) 84 L Glucose 109 H Calcium 10.0 Total Bilirubin 0.3 AST 12 ALT 11 Alkaline Phosphatase 86 Total Protein 7.5 Albumin 4.8 Globulin 2.7 Albumin/Globulin Ratio 1.8 Urine Color YELLOW Urine Clarity CLEAR Urine pH 6.0 Ur Specific [place] 1.010 Urine Protein NEGATIVE Urine Glucose (UA) NEGATIVE Urine Ketones NEGATIVE Urine Occult Blood TRACE-INTA Urine Nitrite NEGATIVE Urine Bilirubin NEGATIVE Urine Urobilinogen 0.2 (NORMAL) Ur Leukocyte Esterase NEGATIVE Ur Microscopic Review NOT INDICATED Urine Culture Comments NOT INDICATED Urine HCG, Qual NEGATIVE PD Medical Decision Making - ED course ED course: 28-year-old presents with nonspecific dizziness with normal exam and no evidence of neurologic issue. Will check EKG and basic labs and orthostatics. 28-year-old woman with nonspecific dizziness. Not a vertigo. No evidence of heart issue or central neurologic issue. She did have some chills as well and I do wonder if she is starting to get sick with a nonspecific viral syndrome. Otherwise blood work including CBC, CMP, urinalysis, and urine test were all normal/negative. She had borderline positive orthostatics and encouraged oral hydration. Departure - Departure Disposition: Home, Self Care Clinical Impression: Dizziness Condition: Good Record reviewed to determine appropriate education?: Yes Instructions: ED Dizziness [facility] Comments: The cause of your dizziness is not clear but given the chills I do wonder if you are coming down with a viral syndrome. Blood work including CBC, CMP, urinalysis, test, and EKG were all normal/negative. Your orthostatic vital signs were mildly positive suggesting some episode mild dehydration and encourage you to drink extra fluids. You do have a flu/COVID swab pending, it takes a few hours to process and we will call you if it is positive for COVID, otherwise you can look up the results on the hospital website at [email or web address] and sign up for the patient portal. Call your doctor to arrange a follow-up appointment, make the next available appointment. In the interim, return anytime if worse or if new symptoms develop. Forms: PCP List
[2023-09-21 17:55] LABS: BASOPHILS % (AUTO) 0.3 %; EOSINOPHILS # (AUTO) 0.1 10^3/uL (0.0-0.7); EOSINOPHILS % (AUTO) 1.5 %; HCT - HEMATOCRIT 39.5 % (37.0-47.0); HGB - HEMOGLOBIN 12.8 g/dL (12.0-16.0); LYMPHOCYTES # (AUTO) 2.4 10^3/uL (1.5-3.5); LYMPHOCYTES % (AUTO) 27.3 %; MEAN CORPUSCULAR HEMOGLOBIN 28.3 pg (27.0-31.0); MEAN CORPUSCULAR HGB CONC 32.4 g/dL (32.0-36.0); MEAN CORPUSCULAR VOLUME 87.4 fL (81.0-99.0); MEAN PLATELET VOLUME 8.9 fL (7.9-10.8); MONOCYTES # (AUTO) 0.5 10^3/uL (0.0-1.0); NEUTROPHILS # (AUTO) 5.8 10^3/uL (1.5-6.6); NEUTROPHILS % (AUTO) 64.6 %; PLT - PLATELET COUNT 299 10^3/uL (130-450); RED BLOOD COUNT 4.52 10^6/uL (4.20-5.40); RED CELL DISTRIBUTION WIDTH 12.1 % (12.0-15.0); WHITE BLOOD COUNT 8.9 x10^3/uL (4.8-10.8)
[2023-09-21 17:57] LABS: BILIRUBIN,URINE NEGATIVE (NEGATIVE); CLARITY,URINE CLEAR (CLEAR); GLUCOSE, URINE (UA) NEGATIVE (NEGATIVE); KETONES,URINE (UA) NEGATIVE (NEGATIVE); LEUKOCYTE ESTERASE, URINE NEGATIVE (NEGATIVE); NITRITE,URINE NEGATIVE (NEGATIVE); OCCULT BLOOD,URINE TRACE-INTA (NEGATIVE); PROTEIN,URINE NEGATIVE (NEGATIVE); UROBILINOGEN,URINE 0.2 (NORMAL) E.U./dL (NORMAL)
[2023-09-21 17:59] LABS: HCG UR QUAL NEGATIVE
[2023-09-21 18:10] LABS: ALBUMIN 4.8 g/dL (3.2-5.5); ALBUMIN/GLOBULIN RATIO 1.8 (1.0-2.2); BILIRUBIN,TOTAL 0.3 mg/dL (0.2-1.0); CREATININE 0.8 mg/dL (0.6-1.3); POTASSIUM 4.3 mmol/L (3.5-4.5); TOTAL PROTEIN 7.5 g/dL (6.4-8.9)
[2023-09-21 18:42] VITALS: BP 119/85; O2SAT 97
[2023-09-21 19:31] LABS: B. PARAPERTUSSIS- RESP PCR PAN NOT DETECTED; B. PERTUSSIS- RESP PCR PANEL NOT DETECTED; C. PNEUMONIAE- RESP PCR PANEL NOT DETECTED; CORONAVIRUS 229E-RESP PCR NOT DETECTED; CORONAVIRUS HKU1-RESP PCR NOT DETECTED; CORONAVIRUS NL63-RESP PCR NOT DETECTED; CORONAVIRUS OC43-RESP PCR NOT DETECTED; HUMAN METAPNEUMOVIRUS NOT DETECTED; INFLUENZA A- RESP PCR PANEL NOT DETECTED; INFLUENZA B - RESP PCR PANEL NOT DETECTED; M. PNEUMONIAE- RESP PCR PANEL NOT DETECTED; PARAINFLUENZA VIRUS 1 NOT DETECTED; PARAINFLUENZA VIRUS 2 NOT DETECTED; PARAINFLUENZA VIRUS 3 NOT DETECTED; PARAINFLUENZA VIRUS 4 NOT DETECTED; RHINOVIRUS/ENTEROVIRUS NOT DETECTED; RSV- RESP PCR PANEL NOT DETECTED; SARS-CoV-2 -RESP PCR PANEL NOT DETECTED
== END 2023-09-21 18:40 | disposition home or self-care (01) ==
LOC: ED 17:30
DX: R42 Dizziness and giddiness (principal)
CPT/HCPCS: 36415; 80053; 81001; 81003; 81025; 85025; 87086; 87633; 93005; 99283; 99284